=== PATIENT | female | born 1940 | race Caucasian/White ===

== ENCOUNTER 2016-09-04 16:59 | Emergency (ER) | payer MEDICARE ==
[~2016-09-04 16:59] MED LIST: /ADVA50050 IN; ALBUTEROL INH; COPAXONE SC; REQU2TAB3 OR; SING10TA31 OR; VALS80CA OR
[2016-09-04] MEDS ORDERED: ASPIRIN 81 MG CHEW TABLET As Ordered ONE (17:36)
[2016-09-04] MEDS ORDERED: HEPARIN SOD (PORCINE) 5000 UNITS/ML VIAL As Ordered ONE (17:54)
[2016-09-04] MEDS ORDERED: NITROGLYCERIN 2% OINT 1 GM *U/D* PKT As Ordered ONE (17:54)
[2016-09-04] MEDS ORDERED: CLOPIDOGREL 300 MG TAB (PLAVIX) As Ordered ONE (17:54)
[2016-09-04] MEDS ORDERED: HEPARIN 25,000 UNITS/250 ML D5W BAG (100 UNITS/ML) As Ordered ONE (17:55)
[2016-09-04 18:04] LABS: INR 0.89
[2016-09-04 18:14] LABS: BASO # 0.1 K/mm3 (0.0-0.2); BASO % 1.1 % (0.0-1.0); EOS # 0.2 K/mm3 (0.0-0.50); EOS % 2.2 % (0.0-3.0); LARGE UNSTAINED CELL # 0.2 K/mm3 (0.0-0.4); LARGE UNSTAINED CELL % 2.4 % (0.0-4.0); LYMPH # 1.7 K/mm3 (1.5-4.5); LYMPH % 15.5 % (24.0-44.0); MEAN CORPUSCULAR HEMOGLOBIN 28.3 pg (27.0-33.0); MEAN CORPUSCULAR HGB CONC 31.6 g/dl (32.0-36.5); MEAN CORPUSCULAR VOLUME 89.6 fl (80.0-96.0); MONO # 0.5 K/mm3 (0.0-0.8); MONO % 4.8 % (0.0-5.0); NEUTROPHILS # 7.1 K/mm3 (1.8-7.7); PLATELET COUNT, AUTOMATED 309 k/mm3 (150-450); RED CELL DISTRIBUTION WIDTH 14.1 % (11.5-14.5); WHITE BLOOD COUNT 9.6 K/mm3 (4.0-10.0)
[2016-09-04 18:21] LABS: ANION GAP 8 MEQ/L (8-16); BLOOD UREA NITROGEN 18 MG/DL (7-18); CARBON DIOXIDE LEVEL 27 MEQ/L (21-32); CHLORIDE LEVEL 110 MEQ/L (98-107); CREATININE FOR GFR 0.64 MG/DL (0.55-1.02); GLOMERULAR FILTRATION RATE > 60.0 (>39); GLUCOSE, FASTING 103 MG/DL (83-110); POTASSIUM SERUM 4.2 MEQ/L (3.5-5.1); SODIUM LEVEL 145 MEQ/L (136-145)
--- NOTE | 2016-09-04 18:30 | EDDOCDS ---
Nurse's Notes [facility] Name: Marielena Roy Age: 76 yrs Sex: Female : 1940 Arrival Date: 09/04/2016 Time: 16:59 Bed 14 Private MD: Zully Rodriguez Diagnosis: Non-ST elevation (NSTEMI) myocardial infarction Presentation: 09/04 17:04 Presenting complaint: Patient states: Chest pain for last 2 days, worse today. Aspirin dwg was not taken prior to arrival. Adult Sepsis Screening: The patient does not have new or worsening altered mentation. Patient's respiratory rate is less than 22. Systolic blood pressure is greater than 100. Patient has a qSOFA score of 0- Negative Sepsis Screen. Suicide/Homicide risk assessment- the patient denies having any suicidal and/or homicidal ideations and does not present with any other emotional, behavioral or mental health complaints. Status: Patient is not a stamp machine servicer or dependent. Transition of care: patient was not received from another setting of care. 17:04 Acuity: PAZ Level 2 dwg 17:04 Method Of Arrival: Wheelchair dwg 17:13 Red Flag criteria, patient assessed and taken directly to a bed. dwg Triage Assessment: 17:12 General: Appears in no apparent distress. Pain: Pain currently is 2 out of 10 on a pain dwg scale. 18:27 Cardiovascular: Chest pain is described as mild, radiates to left neck episodes are jjr intermittent began 2 days ago. Historical: - Allergies: no known allergies; - Home Meds: 1. Advair Diskus 250-50 mcg/dose Inhl dsdv 1 puff 2 times per day (Last dose: 09/04/2016 16:00) 2. atenolol 50 mg Oral tab 1 tab once daily (Last dose: 09/04/2016 08:00) 3. atorvastatin 20 mg oral tab 1 tab nightly (Last dose: 09/03/2016 20:00) 4. [place] 7.5-325 mg Oral tab as needed (Last dose: 09/03/2016 20:00) 5. ropinirole 2 mg oral tab 1 tab nightly (Last dose: 09/03/2016 20:00) 6. nortriptyline 10 mg Oral cap 2 caps nightly (Last dose: 09/03/2016 20:00) 7. montelukast 10 mg oral tab 1 tab once daily (Last dose: 09/04/2016 08:00) 8. Albuterol Inhl 2 puffs as needed 9. nitroglycerin 0.4 mg SL subl 1 tab as needed (Last dose: 09/03/2016 16:00) 10. aspirin 81 mg Oral tab 1 tab once daily (Last dose: 09/03/2016) - PMHx: Diverticulitis; Hypercholesterolemia; Hypertension; Irritable bowel syndrome; [place] (2010); restless leg syndrome; CAD; COPD; - PSHx: Repair of a perforated diverticulum; Tonsillectomy; Cardiac stents; - Social history: Smoking status: Patient states former smoker of tobacco. No barriers to communication noted, The patient speaks fluent Yakut. - : The pt / caregiver states he / she is not on anticoagulants. Home medication list is obtained from. - Exposure Risk Screening:: None identified. Screenin:27 Screening information is obtained from the patient. Fall risk: No risks identified. jjr Assistance ADL's: requires no assistance with activities of daily living. Abuse/DV Screen: The patient / caregiver reports he/she is: not in a situation that causes fear, pain or injury. Nutritional screening: No deficits noted. Advance Directives: There is no active DNR order. home support is adequate. Assessment: 17:29 General: Appears in no apparent distress, well nourished, well groomed, Behavior is jjr appropriate for age. Neurological: No deficits noted. Cardiovascular: Rhythm is sinus rhythm currently denying chest pain, reports substernal pain radiating to left anterior chest and left side of neck with episodes, pain varies from pressure to dull ache and are intermittent in nature, unchanged with activity. Respiratory: Airway is patent Respiratory effort is even, unlabored, Respiratory pattern is regular, Denies shortness of breath. Derm: Skin is pink, warm & dry. Vital Signs: 17:00 BP 206 / 114; Pulse 110; Resp 18 S; Temp 96.7; Pulse Ox 99% on R/A; Weight 40.37 kg dd6 (R); Height 4 ft. 7 in. (139.70 cm) (R); 17:25 BP 180 / 88 (auto/); jjr 17:26 Pulse 84 MON; Pulse Ox 99% ; jjr 17:45 BP 172 / 90 (auto/); jjr 17:45 Pulse 84 MON; Resp 18; Pulse Ox 98% on R/A; jjr 18:05 BP 208 / 110 (auto/); jjr 18:05 Pulse 114 MON; jjr 18:23 BP 184 / 98 (auto/); jjr 18:23 Pulse 90 MON; Resp 18; Temp 97(TE); Pulse Ox 97% on R/A; Pain 0/10; jjr 17:00 Body Mass Index 20.69 (40.37 kg, 139.70 cm) dd6 Vitals: 17:00 Log In Time: September 04, 2016 at 16:58. RN notified that patient meets Red Flag dd6 criteria. ED Course: 17:00 Patient visited by Tony Ramirez PCA. dd6 17:00 Zully Rodriguez is Private Physician. dd6 17:00 Patient moved to Waiting dd6 17:07 Triage Initiated dwg 17:14 Ting Miller, RN is Primary Nurse. dwg 17:14 Patient moved to 14 dwg 17:23 [facility]. le 17:30 Patient visited by Ting Miller RN. jjr 17:30 The patient / caregiver is instructed regarding the plan of care and ED course. Cardiac jjr monitor on. Pulse ox on. NIBP on. 17:31 Patient visited by Celi Brooks FNP. le 17:32 Patient visited by Celi Brooks FNP. le 17:49 Troponin Sent. jjr 17:49 D-Dimer Quant Sent. jjr 17:49 Cardiac Injury Profile Sent. jjr 17:49 CBC with Diff Sent. jjr 17:49 Basic Metabolic Profile Sent. jjr 17:50 Inserted saline lock: 20 gauge in right antecubital area and blood collected. Labs jjr drawn. (by ED staff). Sent per order to lab. EKG done. (by ED staff). Reviewed by Celi LIND. 18:27 No procedures done that require assistance. jjr Administered Medications: 17:42 Drug: Aspirin 324 mg [aspirin 81 mg chewable tablet (4 tabs)] Route: PO; jjr 18:07 Drug: heparin (Thrombolytic Protocol, 60 units/kg)) 2422.2 units [heparin (porcine) jjr 5,000 unit/mL injection solution (0.484 mL)] {Co-Signature: brett (Yeni Valentine RN).} Route: IVP; Site: right antecubital; 18:07 Drug: heparin (Thrombolytic Protocol, 12 units/kg/hr)) 85078 units [heparin (porcine) jjr 25,000 unit/250 mL (100 unit/mL) in dextrose 5 % IV] {Co-Signature: brett (Yeni Valentine RN).} Route: IV; Rate: 12 units/kg/hr; Site: right antecubital; 18:08 Drug: Plavix - Clopidogrel 600 mg [clopidogrel 75 mg tablet (8 tabs)] Route: PO; jjr 18:09 Drug: Nitro-Bid 1 inches [Nitro-Bid 2 % transdermal ointment (1 inches)] Route: jjr Transdermal; Site: anterior chest wall; Order Results: Lab Order: CBC with Diff; SPEC'M 09/04/16 17:46 Test: WHITE BLOOD COUNT; Value: 9.6; Range: 4.0-10.0; Units: K/mm3; Status: F Test: RED BLOOD COUNT; Value: 4.61; Range: 4.00-5.40; Units: M/mm3; Status: F Test: HEMOGLOBIN; Value: 13.1; Range: 12.0-16.0; Units: g/dl; Status: F Test: HEMATOCRIT; Value: 41.3; Range: 36.0-47.0; Units: %; Status: F Test: MEAN CORPUSCULAR VOLUME; Value: 89.6; Range: 80.0-96.0; Units: fl; Status: F Test: MEAN CORPUSCULAR HEMOGLOBIN; Value: 28.3; Range: 27.0-33.0; Units: pg; Status: F Test: MEAN CORPUSCULAR HGB CONC; Value: 31.6; Range: 32.0-36.5; Abnormal: Below low normal; Units: g/dl; Status: F Test: RED CELL DISTRIBUTION WIDTH; Value: 14.1; Range: 11.5-14.5; Units: %; Status: F Test: PLATELET COUNT, AUTOMATED; Value: 309; Range: 150-450; Units: k/mm3; Status: F Test: NEUTROPHILS %; Value: 74.0; Range: 36.0-66.0; Abnormal: Above high normal; Units: %; Status: F Test: LYMPH %; Value: 15.5; Range: 24.0-44.0; Abnormal: Below low normal; Units: %; Status: F Test: MONO %; Value: 4.8; Range: 0.0-5.0; Units: %; Status: F Test: EOS %; Value: 2.2; Range: 0.0-3.0; Units: %; Status: F Test: BASO %; Value: 1.1; Range: 0.0-1.0; Abnormal: Above high normal; Units: %; Status: F Test: LARGE UNSTAINED CELL %; Value: 2.4; Range: 0.0-4.0; Units: %; Status: F Test: NEUTROPHILS #; Value: 7.1; Range: 1.8-7.7; Units: K/mm3; Status: F Test: LYMPH #; Value: 1.7; Range: 1.5-4.5; Units: K/mm3; Status: F Test: MONO #; Value: 0.5; Range: 0.0-0.8; Units: K/mm3; Status: F Test: EOS #; Value: 0.2; Range: 0.0-0.50; Units: K/mm3; Status: F Test: BASO #; Value: 0.1; Range: 0.0-0.2; Units: K/mm3; Status: F Test: LARGE UNSTAINED CELL #; Value: 0.2; Range: 0.0-0.4; Units: K/mm3; Status: F Lab Order: D-Dimer Quant; SPEC'M 09/04/16 17:46 Test: D-DIMER QUANT; Value: < 270.0; Range: <500; Units: ng/ml; Status: F Lab Order: PT & APTT; SPEC'M 09/04/16 17:46 Test: PROTHROMBIN TIME; Value: 12.2; Range: 12.3-14.5; Abnormal: Below low normal; Units: SECONDS; Status: F Test: INR; Value: 0.89; Status: F Test: PARTIAL THROMBOPLASTIN TIME; Value: 25.0; Range: 26.6-37.1; Abnormal: Below low normal; Units: SECONDS; Status: F Test Note: ; THERAPUTIC HUMAN INR VALUES INDICATIONS NORMAL RANGES PROPHYLAXIS/TREATMENT OF: VENOUS THROMBOSIS 2.0-3.0 PULMONARY EMBOLISM 2.0-3.0 PREVENTION OF SYSTEMIC EMBOLISM FROM: TISSUE HEART VALVES 2.0-3.0 ACUTE MYOCARDIAL INFARCTION 2.0-3.0 VALVULAR HEART DISEASE 2.0-3.0 ATRIAL FIBRILLATION 2.0-3.0 MECHANICAL VALVES(HIGH RISK) 2.5-3.5 RECURRENT MYOCARDIAL INFARCTION 2.5-3.5 Outcome: 17:54 ER care complete, transfer ordered by Provider. le 18:14 Admission hand-off: Report called to Marion Polo RN room D5113 phone #[phone]. jjr 18:27 Discharge Assessment: patient administered narcotics - no. The following High Risk r Discharge criteria are identified: None. Transferred to [facility]. by EMS ground [facility] ambulance Transfer form completed. x-rays sent w/ patient. Condition: stable. No special radiology studies were completed. Property :Personal belongings accompany Pt. 18:28 Patient left the ED. jr Signatures: Ivan Monsalve RN RYAN [facility] Celi Brooks, DEPARTMENT SECRETARY DEPARTMENT SECRETARY Ting Ponce RN RN jr Tony Ramirez, SAGGER SOAK SAGGER SOAK dd6 Yeni Valentine RN srm Corrections: (The following items were deleted from the chart) 17:13 17:12 Home Meds: nitroglycerin 0.4 mg SL subl 1 tab as needed; bettina pyle 17:56 17:49 PROTHROMBIN TIME PROFILE\E\INR+LAB sent. jjr EDMS 17:56 17:49 PARTIAL THROMBOPLASTIN TIME+LAB sent. r EDMS MTDD
--- NOTE | 2016-09-04 18:30 | EDDOCDS ---
Physician Documentation [facility] Name: Marielena Roy Age: 76 yrs Sex: Female : 1940 Arrival Date: 09/04/2016 Time: 16:59 Bed 14 Private MD: Zully Rodriguez Disposition: 09/04 17:54 I concur with the Midlevel Provider's decision to transfer this patient to a Higher [facility] Level of Care Facility. Maurice Leonard MD. Disposition: 09/04/16 17:54 Transfer ordered to [facility]. Diagnosis is Non-ST elevation (NSTEMI) myocardial infarction. - Reason for transfer: Higher level of care. - Accepting physician is Ruth. - Condition is Stable. - Problem is new. - Symptoms are unchanged. Historical: - Allergies: no known allergies; - Home Meds: 1. Advair Diskus 250-50 mcg/dose Inhl dsdv 1 puff 2 times per day (Last dose: 09/04/2016 16:00) 2. atenolol 50 mg Oral tab 1 tab once daily (Last dose: 09/04/2016 08:00) 3. atorvastatin 20 mg oral tab 1 tab nightly (Last dose: 09/03/2016 20:00) 4. [place] 7.5-325 mg Oral tab as needed (Last dose: 09/03/2016 20:00) 5. ropinirole 2 mg oral tab 1 tab nightly (Last dose: 09/03/2016 20:00) 6. nortriptyline 10 mg Oral cap 2 caps nightly (Last dose: 09/03/2016 20:00) 7. montelukast 10 mg oral tab 1 tab once daily (Last dose: 09/04/2016 08:00) 8. Albuterol Inhl 2 puffs as needed 9. nitroglycerin 0.4 mg SL subl 1 tab as needed (Last dose: 09/03/2016 16:00) 10. aspirin 81 mg Oral tab 1 tab once daily (Last dose: 09/03/2016) - PMHx: Diverticulitis; Hypercholesterolemia; Hypertension; Irritable bowel syndrome; [place] (2010); restless leg syndrome; CAD; COPD; - PSHx: Repair of a perforated diverticulum; Tonsillectomy; Cardiac stents; - Social history: Smoking status: Patient states former smoker of tobacco. No barriers to communication noted, The patient speaks fluent Arabic. - : The pt / caregiver states he / she is not on anticoagulants. Home medication list is obtained from. - Exposure Risk Screening:: None identified. Vital Signs: 17:00 BP 206 / 114; Pulse 110; Resp 18 S; Temp 96.7; Pulse Ox 99% on R/A; Weight 40.37 kg / dd6 89 lbs (R); Height 4 ft. 7 in. (139.70 cm) (R); 17:25 BP 180 / 88 (auto/); jjr 17:26 Pulse 84 MON; Pulse Ox 99% ; jjr 17:45 BP 172 / 90 (auto/); jjr 17:45 Pulse 84 MON; Resp 18; Pulse Ox 98% on R/A; jjr 18:05 BP 208 / 110 (auto/); jjr 18:05 Pulse 114 MON; jjr 18:23 BP 184 / 98 (auto/); jjr 18:23 Pulse 90 MON; Resp 18; Temp 97(TE); Pulse Ox 97% on R/A; Pain 0/10; jjr 17:00 Body Mass Index 20.69 (40.37 kg, 139.70 cm) dd6 MDM: 17:15 ECG WITH READING ER PHYS+CARDIAG ordered. EDMS 17:24 Aspirin Chewable Tablet 324 mg PO once ordered. le 17:24 Collateral Specialist/Pulse Ox/q 30 min VS ordered. le 17:24 IV Saline Lock ordered. le 17:24 Rhythm Strip to chart ordered. le 17:24 Undress patient appropriately for examination ordered. le 17:24 Misc. Nursing Order ordered. le 17:25 Basic Metabolic Profile Ordered. EDMS 17:25 CBC with Diff Ordered. EDMS 17:25 Cardiac Injury Profile Ordered. EDMS 17:25 D-Dimer Quant Ordered. EDMS 17:25 Troponin Ordered. EDMS 17:26 Chest, 2 View (pa\E\lat) Ordered. EDMS 17:43 Nitro-Bid Ointment 2 % 1 inches Transdermal once ordered. le 17:46 Plavix - Clopidogrel 600 mg PO once ordered. le 17:46 heparin (Thrombolytic Protocol, 60 units/kg)) 60 units/kg IVP once; 2400 units ordered. le 17:46 heparin (Thrombolytic Protocol, 12 units/kg/hr)) 85202 units IV at 12 units/kg/hr once; le 480 units/hr ordered. 17:56 PT & APTT Ordered. EDMS 18:20 CBC with Diff Reviewed. le 18:20 PT & APTT Reviewed. le 18:20 D-Dimer Quant Reviewed. le Administered Medications: 17:42 Drug: Aspirin 324 mg [aspirin 81 mg chewable tablet (4 tabs)] Route: PO; jjr 18:07 Drug: heparin (Thrombolytic Protocol, 60 units/kg)) 2422.2 units [heparin (porcine) jjr 5,000 unit/mL injection solution (0.484 mL)] {Co-Signature: brett (Yeni Valentine RN).} Route: IVP; Site: right antecubital; 18:07 Drug: heparin (Thrombolytic Protocol, 12 units/kg/hr)) 73001 units [heparin (porcine) jjr 25,000 unit/250 mL (100 unit/mL) in dextrose 5 % IV] {Co-Signature: brett (Yeni Valentine RN).} Route: IV; Rate: 12 units/kg/hr; Site: right antecubital; 18:08 Drug: Plavix - Clopidogrel 600 mg [clopidogrel 75 mg tablet (8 tabs)] Route: PO; jjr 18:09 Drug: Nitro-Bid 1 inches [Nitro-Bid 2 % transdermal ointment (1 inches)] Route: jjr Transdermal; Site: anterior chest wall; Signatures: Dispatcher [employer] Ivan Brooks RN RN dwg Westcott, Lisa, ORACLE DRM CONSULTANT ORACLE DRM CONSULTANT Maurice Minor MD MD br1 Ting Miller RN RN jjr Yeni west The chart was reviewed and I authenticate all verbal orders and agree with the evaluation and treatment provided.Corrections: (The following items were deleted from the chart) 17:13 17:12 Home Meds: nitroglycerin 0.4 mg SL subl 1 tab as needed; bettina dunbar 17:56 17:47 PROTHROMBIN TIME PROFILE\E\INR+LAB ordered. EDMS EDMS 17:56 17:47 PARTIAL THROMBOPLASTIN TIME+LAB ordered. EDMS EDMS MTDD
--- NOTE | 2016-09-04 19:51 | REP ---
AP and lateral chest radiograph 09/04/2016 Indication: Chest pain Comparison: PA and lateral chest radiograph 03/27/2015 performed at [facility] Findings: The cardiomediastinal silhouette is borderline in size with left ventricular prominence. There is a hiatal hernia which is seen in left lower chest and in a left retrocardiac location. Severe rotatory dextroscoliosis is noted within the thoracic spine and there is a compensatory significant levoscoliosis within the upper lumbar spine. Moderate atherosclerotic changes are noted in the abdominal aorta. There is a left anterior descending coronary artery stent Impression: The cardiomediastinal silhouette is borderline in size with left ventricular prominence and unchanged. Coronary artery stent There is also a left-sided hiatal hernia Chronic fibrotic scarring; no acute cardiopulmonary process Severe S-shaped scoliotic deformity involving the thoracic i and t included portions of the lumbar spine Signed by Lavinia Garrison MD 09/04/2016 07:42 P
--- NOTE | 2016-09-05 08:11 | ECGEPIP ---
Stationary ECG Study [facility] - ED Test Date: 2016-09-04 Pat Name: MATTIE JENKINS Department: Room: - Gender: F Canoe Inspector: : 1940 Requested By: ROSIE Collado Order Number: [id number] Reading MD: Katheryn Johnson Measurements Intervals [place] Rate: 86 P: 62 [place]: 120 QRS: 59 QRSD: 88 T: 66 QT: 425 QTc: 510 Interpretive Statements SINUS RHYTHM MARKED ST ABNORMALITY, ANTERIOR ISCHEMIA, NEW 02/25/12, CLINICAL CORRELATION Electronically Signed On 09-05-2016 8:11:11 EST by Katheryn Johnson
--- NOTE | 2016-09-06 19:29 | EDDOCDS ---
Physician Documentation [facility] Name: Marielena Roy Age: 76 yrs Sex: Female : 1940 Arrival Date: 09/04/2016 Time: 16:59 Bed 14 Private MD: Zully Rodriguez Disposition: 09/04 17:54 I concur with the Midlevel Provider's decision to transfer this patient to a [facility]. Maurice Leonard MD. Disposition: 09/04/16 17:54 Transfer ordered to [facility]. Diagnosis is Non-ST elevation (NSTEMI) myocardial infarction. - Reason for transfer: Higher level of care. - Accepting physician is Ruth. - Condition is Stable. - Problem is new. - Symptoms are unchanged. Historical: - Allergies: no known allergies; - Home Meds: 1. Advair Diskus 250-50 mcg/dose Inhl dsdv 1 puff 2 times per day (Last dose: 09/04/2016 16:00) 2. atenolol 50 mg Oral tab 1 tab once daily (Last dose: 09/04/2016 08:00) 3. atorvastatin 20 mg oral tab 1 tab nightly (Last dose: 09/03/2016 20:00) 4. [place] 7.5-325 mg Oral tab as needed (Last dose: 09/03/2016 20:00) 5. ropinirole 2 mg oral tab 1 tab nightly (Last dose: 09/03/2016 20:00) 6. nortriptyline 10 mg Oral cap 2 caps nightly (Last dose: 09/03/2016 20:00) 7. montelukast 10 mg oral tab 1 tab once daily (Last dose: 09/04/2016 08:00) 8. Albuterol Inhl 2 puffs as needed 9. nitroglycerin 0.4 mg SL subl 1 tab as needed (Last dose: 09/03/2016 16:00) 10. aspirin 81 mg Oral tab 1 tab once daily (Last dose: 09/03/2016) - PMHx: Diverticulitis; Hypercholesterolemia; Hypertension; Irritable bowel syndrome; [place] (2010); restless leg syndrome; CAD; COPD; - PSHx: Repair of a perforated diverticulum; Tonsillectomy; Cardiac stents; - Social history: Smoking status: Patient states former smoker of tobacco. No barriers to communication noted, The patient speaks fluent Romansh. - : The pt / caregiver states he / she is not on anticoagulants. Home medication list is obtained from. - Exposure Risk Screening:: None identified. Vital Signs: 17:00 BP 206 / 114; Pulse 110; Resp 18 S; Temp 96.7; Pulse Ox 99% on R/A; Weight 40.37 kg / dd6 89 lbs (R); Height 4 ft. 7 in. (139.70 cm) (R); 17:25 BP 180 / 88 (auto/); jjr 17:26 Pulse 84 MON; Pulse Ox 99% ; jjr 17:45 BP 172 / 90 (auto/); jjr 17:45 Pulse 84 MON; Resp 18; Pulse Ox 98% on R/A; jjr 18:05 BP 208 / 110 (auto/); jjr 18:05 Pulse 114 MON; jjr 18:23 BP 184 / 98 (auto/); jjr 18:23 Pulse 90 MON; Resp 18; Temp 97(TE); Pulse Ox 97% on R/A; Pain 0/10; jjr 17:00 Body Mass Index 20.69 (40.37 kg, 139.70 cm) dd6 MDM: 17:15 ECG WITH READING ER PHYS+CARDIAG ordered. EDMS 17:24 Aspirin Chewable Tablet 324 mg PO once ordered. le 17:24 Erp Business Analyst/Pulse Ox/q 30 min VS ordered. le 17:24 IV Saline Lock ordered. le 17:24 Rhythm Strip to chart ordered. le 17:24 Undress patient appropriately for examination ordered. le 17:24 Misc. Nursing Order ordered. le 17:25 Basic Metabolic Profile Ordered. EDMS 17:25 CBC with Diff Ordered. EDMS 17:25 Cardiac Injury Profile Ordered. EDMS 17:25 D-Dimer Quant Ordered. EDMS 17:25 Troponin Ordered. EDMS 17:26 Chest, 2 View (pa\E\lat) Ordered. EDMS 17:43 Nitro-Bid Ointment 2 % 1 inches Transdermal once ordered. le 17:46 Plavix - Clopidogrel 600 mg PO once ordered. le 17:46 heparin (Thrombolytic Protocol, 60 units/kg)) 60 units/kg IVP once; 2400 units ordered. le 17:46 heparin (Thrombolytic Protocol, 12 units/kg/hr)) 23903 units IV at 12 units/kg/hr once; le 480 units/hr ordered. 17:56 PT & APTT Ordered. EDMS 18:20 CBC with Diff Reviewed. le 18:20 PT & APTT Reviewed. le 18:20 D-Dimer Quant Reviewed. le 22:43 [facility] Payment Agreement was scanned into Vetr and attached to record. jp5 22:43 Financial registration complete. jp5 09/05 12:40 T-Sheet-- Draft Copy was scanned into Vetr and attached to record. gb 12:41 ECG/EKG was scanned into Vetr and attached to record. gb Administered Medications: 09/04 17:42 Drug: Aspirin 324 mg [aspirin 81 mg chewable tablet (4 tabs)] Route: PO; jjr 18:07 Drug: heparin (Thrombolytic Protocol, 60 units/kg)) 2422.2 units [heparin (porcine) jjr 5,000 unit/mL injection solution (0.484 mL)] {Co-Signature: srm (Yeni Valentine RN).} Route: IVP; Site: right antecubital; 18:07 Drug: heparin (Thrombolytic Protocol, 12 units/kg/hr)) 85706 units [heparin (porcine) jjr 25,000 unit/250 mL (100 unit/mL) in dextrose 5 % IV] {Co-Signature: srm (Yeni Valentine RN).} Route: IV; Rate: 12 units/kg/hr; Site: right antecubital; 18:08 Drug: Plavix - Clopidogrel 600 mg [clopidogrel 75 mg tablet (8 tabs)] Route: PO; jjr 18:09 Drug: Nitro-Bid 1 inches [Nitro-Bid 2 % transdermal ointment (1 inches)] Route: jjr Transdermal; Site: anterior chest wall; Signatures: Dispatcher [employer] EDMS Ivan Monsalve RN RN dwHolli Pearce, Reg Reg gb Celi Brooks, SPICE BLENDER SPICE BLENDER Maurice Minor MD MD br1 Ting Miller RN RN Spring Davies jp5 Yeni west The chart was reviewed and I authenticate all verbal orders and agree with the evaluation and treatment provided.Corrections: (The following items were deleted from the chart) 17:13 17:12 Home Meds: nitroglycerin 0.4 mg SL subl 1 tab as needed; dwg dwg 17:56 17:47 PROTHROMBIN TIME PROFILE\E\INR+LAB ordered. EDMS EDMS 17:56 17:47 PARTIAL THROMBOPLASTIN TIME+LAB ordered. EDMS EDMS Attachments: 22:43 [facility] Payment Agreement jp5 09/05 12:40 T-Sheet-- Draft Copy gb 12:41 ECG/EKG gb Chart Complete MTDD
--- NOTE | 2016-09-06 19:29 | EDDOCDS ---
Nurse's Notes [facility] Name: Marielena Roy Age: 76 yrs Sex: Female : 1940 Arrival Date: 09/04/2016 Time: 16:59 Bed 14 Private MD: Zully Rodriguez Diagnosis: Non-ST elevation (NSTEMI) myocardial infarction Presentation: 09/04 17:04 Presenting complaint: Patient states: Chest pain for last 2 days, worse today. Aspirin dwg was not taken prior to arrival. Adult Sepsis Screening: The patient does not have new or worsening altered mentation. Patient's respiratory rate is less than 22. Systolic blood pressure is greater than 100. Patient has a qSOFA score of 0- Negative Sepsis Screen. Suicide/Homicide risk assessment- the patient denies having any suicidal and/or homicidal ideations and does not present with any other emotional, behavioral or mental health complaints. Status: Patient is not a guest services associate or dependent. Transition of care: patient was not received from another setting of care. 17:04 Acuity: PAZ Level 2 dwg 17:04 Method Of Arrival: Wheelchair dwg 17:13 Red Flag criteria, patient assessed and taken directly to a bed. dwg Triage Assessment: 17:12 General: Appears in no apparent distress. Pain: Pain currently is 2 out of 10 on a pain dwg scale. 18:27 Cardiovascular: Chest pain is described as mild, radiates to left neck episodes are jjr intermittent began 2 days ago. Historical: - Allergies: no known allergies; - Home Meds: 1. Advair Diskus 250-50 mcg/dose Inhl dsdv 1 puff 2 times per day (Last dose: 09/04/2016 16:00) 2. atenolol 50 mg Oral tab 1 tab once daily (Last dose: 09/04/2016 08:00) 3. atorvastatin 20 mg oral tab 1 tab nightly (Last dose: 09/03/2016 20:00) 4. [place] 7.5-325 mg Oral tab as needed (Last dose: 09/03/2016 20:00) 5. ropinirole 2 mg oral tab 1 tab nightly (Last dose: 09/03/2016 20:00) 6. nortriptyline 10 mg Oral cap 2 caps nightly (Last dose: 09/03/2016 20:00) 7. montelukast 10 mg oral tab 1 tab once daily (Last dose: 09/04/2016 08:00) 8. Albuterol Inhl 2 puffs as needed 9. nitroglycerin 0.4 mg SL subl 1 tab as needed (Last dose: 09/03/2016 16:00) 10. aspirin 81 mg Oral tab 1 tab once daily (Last dose: 09/03/2016) - PMHx: Diverticulitis; Hypercholesterolemia; Hypertension; Irritable bowel syndrome; SC (2010); restless leg syndrome; CAD; COPD; - PSHx: Repair of a perforated diverticulum; Tonsillectomy; Cardiac stents; - Social history: Smoking status: Patient states former smoker of tobacco. No barriers to communication noted, The patient speaks fluent Slovenian. - : The pt / caregiver states he / she is not on anticoagulants. Home medication list is obtained from. - Exposure Risk Screening:: None identified. Screenin:27 Screening information is obtained from the patient. Fall risk: No risks identified. jjr Assistance ADL's: requires no assistance with activities of daily living. Abuse/DV Screen: The patient / caregiver reports he/she is: not in a situation that causes fear, pain or injury. Nutritional screening: No deficits noted. Advance Directives: There is no active DNR order. home support is adequate. Assessment: 17:29 General: Appears in no apparent distress, well nourished, well groomed, Behavior is jjr appropriate for age. Neurological: No deficits noted. Cardiovascular: Rhythm is sinus rhythm currently denying chest pain, reports substernal pain radiating to left anterior chest and left side of neck with episodes, pain varies from pressure to dull ache and are intermittent in nature, unchanged with activity. Respiratory: Airway is patent Respiratory effort is even, unlabored, Respiratory pattern is regular, Denies shortness of breath. Derm: Skin is pink, warm & dry. Vital Signs: 17:00 BP 206 / 114; Pulse 110; Resp 18 S; Temp 96.7; Pulse Ox 99% on R/A; Weight 40.37 kg dd6 (R); Height 4 ft. 7 in. (139.70 cm) (R); 17:25 BP 180 / 88 (auto/); jjr 17:26 Pulse 84 MON; Pulse Ox 99% ; jjr 17:45 BP 172 / 90 (auto/); jjr 17:45 Pulse 84 MON; Resp 18; Pulse Ox 98% on R/A; jjr 18:05 BP 208 / 110 (auto/); jjr 18:05 Pulse 114 MON; jjr 18:23 BP 184 / 98 (auto/); jjr 18:23 Pulse 90 MON; Resp 18; Temp 97(TE); Pulse Ox 97% on R/A; Pain 0/10; jjr 17:00 Body Mass Index 20.69 (40.37 kg, 139.70 cm) dd6 Vitals: 17:00 Log In Time: September 04, 2016 at 16:58. RN notified that patient meets Red Flag dd6 criteria. ED Course: 17:00 Patient visited by Tony Ramirez PCA. dd6 17:00 Zully Rodriguez is Private Physician. dd6 17:00 Patient moved to Waiting dd6 17:07 Triage Initiated dwg 17:14 Ting Miller, RN is Primary Nurse. dwg 17:14 Patient moved to 14 dwg 17:23 [facility] le 17:30 Patient visited by Ting Miller RN. jjr 17:30 The patient / caregiver is instructed regarding the plan of care and ED course. Cardiac jjr monitor on. Pulse ox on. NIBP on. 17:31 Patient visited by Celi Brooks FNP. le 17:32 Patient visited by Celi Brooks FNP. le 17:49 Troponin Sent. jjr 17:49 D-Dimer Quant Sent. jjr 17:49 Cardiac Injury Profile Sent. jjr 17:49 CBC with Diff Sent. jjr 17:49 Basic Metabolic Profile Sent. jjr 17:50 Inserted saline lock: 20 gauge in right antecubital area and blood collected. Labs jjr drawn. (by ED staff). Sent per order to lab. EKG done. (by ED staff). Reviewed by Celi LIND. 18:27 No procedures done that require assistance. jjr 20:20 Chest, 2 View (pa\E\lat) Returned. EDMS 22:43 [facility] Payment Agreement was scanned into [employer] and attached to record. jp5 09/05 08:41 EKG-ADULT Returned. EDMS 12:40 T-Sheet-- Draft Copy was scanned into [employer] and attached to record. gb 12:41 ECG/EKG was scanned into [employer] and attached to record. gb Administered Medications: 09/04 17:42 Drug: Aspirin 324 mg [aspirin 81 mg chewable tablet (4 tabs)] Route: PO; jjr 18:07 Drug: heparin (Thrombolytic Protocol, 60 units/kg)) 2422.2 units [heparin (porcine) jjr 5,000 unit/mL injection solution (0.484 mL)] {Co-Signature: srm (Yeni Valentine RN).} Route: IVP; Site: right antecubital; 18:07 Drug: heparin (Thrombolytic Protocol, 12 units/kg/hr)) 62177 units [heparin (porcine) jjr 25,000 unit/250 mL (100 unit/mL) in dextrose 5 % IV] {Co-Signature: srm (Yeni Valentine RN).} Route: IV; Rate: 12 units/kg/hr; Site: right antecubital; 18:08 Drug: Plavix - Clopidogrel 600 mg [clopidogrel 75 mg tablet (8 tabs)] Route: PO; jjr 18:09 Drug: Nitro-Bid 1 inches [Nitro-Bid 2 % transdermal ointment (1 inches)] Route: jjr Transdermal; Site: anterior chest wall; Order Results: Lab Order: Basic Metabolic Profile; SPEC'M 09/04/16 17:46 Test: GLUCOSE, FASTING; Value: 103; Range: 83-110; Units: MG/DL; Status: F Test: BLOOD UREA NITROGEN; Value: 18; Range: 7-18; Units: MG/DL; Status: F Test: CREATININE FOR GFR; Value: 0.64; Range: 0.55-1.02; Units: MG/DL; Status: F Test: GLOMERULAR FILTRATION RATE; Value: > 60.0; Range: >39; Status: F Test: SODIUM LEVEL; Value: 145; Range: 136-145; Units: MEQ/L; Status: F Test: POTASSIUM SERUM; Value: 4.2; Range: 3.5-5.1; Units: MEQ/L; Status: F Test: CHLORIDE LEVEL; Value: 110; Range: 98-107; Abnormal: Above high normal; Units: MEQ/L; Status: F Test: CARBON DIOXIDE LEVEL; Value: 27; Range: 21-32; Units: MEQ/L; Status: F Test: ANION GAP; Value: 8; Range: 8-16; Units: MEQ/L; Status: F Test: CALCIUM LEVEL; Value: 9.0; Range: 8.8-10.2; Units: MG/DL; Status: F Test Note: ; Units are mL/min/1.73 m2 Chronic Kidney Disease Staging per NKF: Stage I & II GFR >=60 Normal to Mildly Decreased Stage III GFR 30-59 Moderately Decreased Stage IV GFR 15-29 Severely Decreased Stage V GFR <15 Very Little GFR Left ESRD GFR <15 on AUTOMATIC VULCANIZING OPERATOR Lab Order: CBC with Diff; SPEC'M 09/04/16 17:46 Test: WHITE BLOOD COUNT; Value: 9.6; Range: 4.0-10.0; Units: K/mm3; Status: F Test: RED BLOOD COUNT; Value: 4.61; Range: 4.00-5.40; Units: M/mm3; Status: F Test: HEMOGLOBIN; Value: 13.1; Range: 12.0-16.0; Units: g/dl; Status: F Test: HEMATOCRIT; Value: 41.3; Range: 36.0-47.0; Units: %; Status: F Test: MEAN CORPUSCULAR VOLUME; Value: 89.6; Range: 80.0-96.0; Units: fl; Status: F Test: MEAN CORPUSCULAR HEMOGLOBIN; Value: 28.3; Range: 27.0-33.0; Units: pg; Status: F Test: MEAN CORPUSCULAR HGB CONC; Value: 31.6; Range: 32.0-36.5; Abnormal: Below low normal; Units: g/dl; Status: F Test: RED CELL DISTRIBUTION WIDTH; Value: 14.1; Range: 11.5-14.5; Units: %; Status: F Test: PLATELET COUNT, AUTOMATED; Value: 309; Range: 150-450; Units: k/mm3; Status: F Test: NEUTROPHILS %; Value: 74.0; Range: 36.0-66.0; Abnormal: Above high normal; Units: %; Status: F Test: LYMPH %; Value: 15.5; Range: 24.0-44.0; Abnormal: Below low normal; Units: %; Status: F Test: MONO %; Value: 4.8; Range: 0.0-5.0; Units: %; Status: F Test: EOS %; Value: 2.2; Range: 0.0-3.0; Units: %; Status: F Test: BASO %; Value: 1.1; Range: 0.0-1.0; Abnormal: Above high normal; Units: %; Status: F Test: LARGE UNSTAINED CELL %; Value: 2.4; Range: 0.0-4.0; Units: %; Status: F Test: NEUTROPHILS #; Value: 7.1; Range: 1.8-7.7; Units: K/mm3; Status: F Test: LYMPH #; Value: 1.7; Range: 1.5-4.5; Units: K/mm3; Status: F Test: MONO #; Value: 0.5; Range: 0.0-0.8; Units: K/mm3; Status: F Test: EOS #; Value: 0.2; Range: 0.0-0.50; Units: K/mm3; Status: F Test: BASO #; Value: 0.1; Range: 0.0-0.2; Units: K/mm3; Status: F Test: LARGE UNSTAINED CELL #; Value: 0.2; Range: 0.0-0.4; Units: K/mm3; Status: F Lab Order: Cardiac Injury Profile; SPEC'M 09/04/16 17:46 Test: CPK CREATINE PHOSPHOKINASE; Value: 135; Range: 26-192; Units: U/L; Status: F Test: CK-MB VALUE MASS; Value: 12.4; Range: 0.0-3.6; Abnormal: Above high normal; Units: NG/ML; Status: F Test: MB/CK RELATIVE INDEX; Value: 9.18; Range: < OR =4; Abnormal: Above high normal; Status: F Test Note: ; DIAGNOSIS CRITERIA MMB ng/ml Relative Index (RI) NON-AMI < or = 5 N/A CHUNG ZONE > 5 < or = 4 AMI > 5 > 4 Lab Order: D-Dimer Quant; SPEC'M 09/04/16 17:46 Test: D-DIMER QUANT; Value: < 270.0; Range: <500; Units: ng/ml; Status: F Lab Order: Troponin; SPEC'M 09/04/16 17:46 Test: TROPONIN I; Value: 1.92; Range: < 0.10; Abnormal: Above upper panic limits; Units: NG/ML; Status: F Test Note: ; Troponin I Reference Interval for [employer] LOCI: 99th Percentile= 0.00-0.045 ng/ml Risk Stratification: <= 0.10 ng/ml Decreased Risk for Adverse Clinical Events. 0.10-1.50 ng/ml Increased Risk for Adverse Clinical Events. Evaluation of additional criterion and/or repeat testing in 2-6 hours is suggested to rule out myocardial damage. >= 1.50 ng/ml Indicative of Myocardial Injury. Lab Order: PT & APTT; SPEC'M 09/04/16 17:46 Test: PROTHROMBIN TIME; Value: 12.2; Range: 12.3-14.5; Abnormal: Below low normal; Units: SECONDS; Status: F Test: INR; Value: 0.89; Status: F Test: PARTIAL THROMBOPLASTIN TIME; Value: 25.0; Range: 26.6-37.1; Abnormal: Below low normal; Units: SECONDS; Status: F Test Note: ; THERAPUTIC HUMAN INR VALUES INDICATIONS NORMAL RANGES PROPHYLAXIS/TREATMENT OF: VENOUS THROMBOSIS 2.0-3.0 PULMONARY EMBOLISM 2.0-3.0 PREVENTION OF SYSTEMIC EMBOLISM FROM: TISSUE HEART VALVES 2.0-3.0 ACUTE MYOCARDIAL INFARCTION 2.0-3.0 VALVULAR HEART DISEASE 2.0-3.0 ATRIAL FIBRILLATION 2.0-3.0 MECHANICAL VALVES(HIGH RISK) 2.5-3.5 RECURRENT MYOCARDIAL INFARCTION 2.5-3.5 Radiology Order: EKG-ADULT Test: EKG-ADULT REASON FOR EXAMINATION: Chest Pain; Stationary ECG Study; [facility] - ED; ; Test Date: 2016-09-04; Pat Name: MARIELENA ROY Department:; Room: -; Gender: F Evs Tech: ; : 1940 Requested By: ROSIE Collado; Order Number: [id number] Reading MD: Katheryn Johnson; Measurements; Intervals [place]; Rate: 86 P: 62; SC: 120 QRS: 59; QRSD: 88 T: 66; QT: 425; QTc: 510; Interpretive Statements; SINUS RHYTHM; MARKED ST ABNORMALITY, ANTERIOR ISCHEMIA, NEW 02/25/12, CLINICAL CORRELATION; ; Electronically Signed On 09-05-2016 8:11:11 EST by Katheryn Johnson; Radiology Order: Chest, 2 View (pa\E\lat) Test: Chest, 2 View (pa\E\lat) REASON FOR EXAMINATION: Chest Pain; AP and lateral chest radiograph 09/04/2016; ; Indication: Chest pain; ; Comparison: PA and lateral chest radiograph 03/27/2015 performed at [facility]; ; Findings: The cardiomediastinal silhouette is borderline in size with left; ventricular prominence. There is a hiatal hernia which is seen in left lower; chest and in a left retrocardiac location.; ; Severe rotatory dextroscoliosis is noted within the thoracic spine and there is a; compensatory significant levoscoliosis within the upper lumbar spine. Moderate; atherosclerotic changes are noted in the abdominal aorta. There is a left; anterior descending coronary artery stent; ; Impression:; ; The cardiomediastinal silhouette is borderline in size with left ventricular; prominence and unchanged. Coronary artery stent; ; There is also a left-sided hiatal hernia; ; Chronic fibrotic scarring; no acute cardiopulmonary process; ; Severe S-shaped scoliotic deformity involving the thoracic i and t included; portions of the lumbar spine; ; ; Signed by; Lavinia Garrison MD 09/04/2016 07:42 P; Outcome: 17:54 ER care complete, transfer ordered by Provider. le 18:14 Admission hand-off: Report called to Marion Polo RN room D5315 phone #[phone]. jjr 18:27 Discharge Assessment: patient administered narcotics - no. The following High Risk r Discharge criteria are identified: None. Transferred to [facility]. by EMS ground [facility] ambulance Transfer form completed. x-rays sent w/ patient. Condition: stable. No special radiology studies were completed. Property :Personal belongings accompany Pt. 18:28 Patient left the ED. [facility] Signatures: Dispatcher [employer] EDMS Ivan Monsalve, RN RN [facility] Holli Lomeli, Reg Reg gb ToddCeli, LINE ORDERING CLINICIAN LINE ORDERING CLINICIAN Ting Ponce, RN RN jr Tony Ramirez, COAT ROOM ATTENDANT COAT ROOM ATTENDANT dd6 Spring Conley jp5 Yeni Valentine RN srm Corrections: (The following items were deleted from the chart) 17:13 17:12 Home Meds: nitroglycerin 0.4 mg SL subl 1 tab as needed; [facility] 17:56 17:49 PROTHROMBIN TIME PROFILE\E\INR+LAB sent. [facility] 17:56 17:49 PARTIAL THROMBOPLASTIN TIME+LAB sent. [facility] Chart Complete MTDD
--- NOTE | 2016-09-06 19:29 | EDDOCDS ---
Physician Documentation [facility] Name: Marielena Roy Age: 76 yrs Sex: Female : 1940 Arrival Date: 09/04/2016 Time: 16:59 Bed 14 Private MD: Zully Rodriguez Disposition: 09/04 17:54 I concur with the Midlevel Provider's decision to transfer this patient to a Higher [facility] Level of Care Facility. Maurice Leonard MD. Disposition: 09/04/16 17:54 Transfer ordered to [facility]. Diagnosis is Non-ST elevation (NSTEMI) myocardial infarction. - Reason for transfer: Higher level of care. - Accepting physician is Ruth. - Condition is Stable. - Problem is new. - Symptoms are unchanged. Historical: - Allergies: no known allergies; - Home Meds: 1. Advair Diskus 250-50 mcg/dose Inhl dsdv 1 puff 2 times per day (Last dose: 09/04/2016 16:00) 2. atenolol 50 mg Oral tab 1 tab once daily (Last dose: 09/04/2016 08:00) 3. atorvastatin 20 mg oral tab 1 tab nightly (Last dose: 09/03/2016 20:00) 4. [place] 7.5-325 mg Oral tab as needed (Last dose: 09/03/2016 20:00) 5. ropinirole 2 mg oral tab 1 tab nightly (Last dose: 09/03/2016 20:00) 6. nortriptyline 10 mg Oral cap 2 caps nightly (Last dose: 09/03/2016 20:00) 7. montelukast 10 mg oral tab 1 tab once daily (Last dose: 09/04/2016 08:00) 8. Albuterol Inhl 2 puffs as needed 9. nitroglycerin 0.4 mg SL subl 1 tab as needed (Last dose: 09/03/2016 16:00) 10. aspirin 81 mg Oral tab 1 tab once daily (Last dose: 09/03/2016) - PMHx: Diverticulitis; Hypercholesterolemia; Hypertension; Irritable bowel syndrome; [place] (2010); restless leg syndrome; CAD; COPD; - PSHx: Repair of a perforated diverticulum; Tonsillectomy; Cardiac stents; - Social history: Smoking status: Patient states former smoker of tobacco. No barriers to communication noted, The patient speaks fluent Korean. - : The pt / caregiver states he / she is not on anticoagulants. Home medication list is obtained from. - Exposure Risk Screening:: None identified. Vital Signs: 17:00 BP 206 / 114; Pulse 110; Resp 18 S; Temp 96.7; Pulse Ox 99% on R/A; Weight 40.37 kg / dd6 89 lbs (R); Height 4 ft. 7 in. (139.70 cm) (R); 17:25 BP 180 / 88 (auto/); jjr 17:26 Pulse 84 MON; Pulse Ox 99% ; jjr 17:45 BP 172 / 90 (auto/); jjr 17:45 Pulse 84 MON; Resp 18; Pulse Ox 98% on R/A; jjr 18:05 BP 208 / 110 (auto/); jjr 18:05 Pulse 114 MON; jjr 18:23 BP 184 / 98 (auto/); jjr 18:23 Pulse 90 MON; Resp 18; Temp 97(TE); Pulse Ox 97% on R/A; Pain 0/10; jjr 17:00 Body Mass Index 20.69 (40.37 kg, 139.70 cm) dd6 MDM: 17:15 ECG WITH READING ER PHYS+CARDIAG ordered. EDMS 17:24 Aspirin Chewable Tablet 324 mg PO once ordered. le 17:24 Mma Fighter/Pulse Ox/q 30 min VS ordered. le 17:24 IV Saline Lock ordered. le 17:24 Rhythm Strip to chart ordered. le 17:24 Undress patient appropriately for examination ordered. le 17:24 Misc. Nursing Order ordered. le 17:25 Basic Metabolic Profile Ordered. EDMS 17:25 CBC with Diff Ordered. EDMS 17:25 Cardiac Injury Profile Ordered. EDMS 17:25 D-Dimer Quant Ordered. EDMS 17:25 Troponin Ordered. EDMS 17:26 Chest, 2 View (pa\E\lat) Ordered. EDMS 17:43 Nitro-Bid Ointment 2 % 1 inches Transdermal once ordered. le 17:46 Plavix - Clopidogrel 600 mg PO once ordered. le 17:46 heparin (Thrombolytic Protocol, 60 units/kg)) 60 units/kg IVP once; 2400 units ordered. le 17:46 heparin (Thrombolytic Protocol, 12 units/kg/hr)) 72796 units IV at 12 units/kg/hr once; le 480 units/hr ordered. 17:56 PT & APTT Ordered. EDMS 18:20 CBC with Diff Reviewed. le 18:20 PT & APTT Reviewed. le 18:20 D-Dimer Quant Reviewed. le 22:43 [facility] Payment Agreement was scanned into [employer] and attached to record. jp5 22:43 Financial registration complete. jp5 09/05 12:40 T-Sheet-- Draft Copy was scanned into [employer] and attached to record. gb 12:41 ECG/EKG was scanned into [employer] and attached to record. gb Administered Medications: 09/04 17:42 Drug: Aspirin 324 mg [aspirin 81 mg chewable tablet (4 tabs)] Route: PO; jjr 18:07 Drug: heparin (Thrombolytic Protocol, 60 units/kg)) 2422.2 units [heparin (porcine) jjr 5,000 unit/mL injection solution (0.484 mL)] {Co-Signature: srm (Yeni Valentine RN).} Route: IVP; Site: right antecubital; 18:07 Drug: heparin (Thrombolytic Protocol, 12 units/kg/hr)) 02134 units [heparin (porcine) jjr 25,000 unit/250 mL (100 unit/mL) in dextrose 5 % IV] {Co-Signature: srm (Yeni Valentine RN).} Route: IV; Rate: 12 units/kg/hr; Site: right antecubital; 18:08 Drug: Plavix - Clopidogrel 600 mg [clopidogrel 75 mg tablet (8 tabs)] Route: PO; jjr 18:09 Drug: Nitro-Bid 1 inches [Nitro-Bid 2 % transdermal ointment (1 inches)] Route: jjr Transdermal; Site: anterior chest wall; Signatures: Dispatcher [employer] EDMS Ivan Monsalve RN RN dwHolli Pearce, Reg Reg gb Celi Brooks, GAS COMPRESSOR OPERATOR GAS COMPRESSOR OPERATOR Maurice Minor MD MD br1 Ting Miller RN RN Spring Davies jp5 Yeni west The chart was reviewed and I authenticate all verbal orders and agree with the evaluation and treatment provided.Corrections: (The following items were deleted from the chart) 17:13 17:12 Home Meds: nitroglycerin 0.4 mg SL subl 1 tab as needed; dwg dwg 17:56 17:47 PROTHROMBIN TIME PROFILE\E\INR+LAB ordered. EDMS EDMS 17:56 17:47 PARTIAL THROMBOPLASTIN TIME+LAB ordered. EDMS EDMS Attachments: 22:43 [facility] Payment Agreement jp5 09/05 12:40 T-Sheet-- Draft Copy gb 12:41 ECG/EKG gb Chart Complete MTDD
== END 2016-09-04 18:28 | disposition short-term general hospital (02) ==
LOC: M ED 16:59
DX: I21.4 Non-ST elevation (NSTEMI) myocardial infarction (principal); I10 Essential (primary) hypertension; I25.10 Atherosclerotic heart disease of native coronary artery without angina pectoris; I25.2 Old myocardial infarction; J44.9 Chronic obstructive pulmonary disease, unspecified; E78.5 Hyperlipidemia, unspecified; K58.9 Irritable bowel syndrome, unspecified; K57.92 Diverticulitis of intestine, part unspecified, without perforation or abscess without bleeding; G25.81 Restless legs syndrome; Z95.5 Presence of coronary angioplasty implant and graft; Z87.891 Personal history of nicotine dependence; Z79.899 Other long term (current) drug therapy; Z79.82 Long term (current) use of aspirin

== ENCOUNTER → 2016-09-18 | Outpatient (REF) | payer MEDICARE ==
[2016-09-18 16:07] LABS: MEAN CORPUSCULAR HEMOGLOBIN 28.5 pg (27.0-33.0); MEAN CORPUSCULAR HGB CONC 31.6 g/dl (32.0-36.5); MEAN CORPUSCULAR VOLUME 90.2 fl (80.0-96.0); RED CELL DISTRIBUTION WIDTH 13.9 % (11.5-14.5); WHITE BLOOD COUNT 6.2 K/mm3 (4.0-10.0)
== END ==
LOC: M LABDRAW1 15:40
PROVIDERS: ATTEND Nurse Practitioner Family
DX: Z95.5 Presence of coronary angioplasty implant and graft (principal); Z79.899 Other long term (current) drug therapy

== ENCOUNTER → 2017-03-26 | Outpatient (REF) | payer MEDICARE ==
[2017-03-26 13:43] LABS: BLOOD UREA NITROGEN 20 MG/DL (7-18); CREATININE FOR GFR 0.68 MG/DL (0.55-1.02); GLOMERULAR FILTRATION RATE > 60.0 (>39)
== END ==
LOC: M LABNEURO 09:36
PROVIDERS: ATTEND Physician Assistant Medical
DX: I10 Essential (primary) hypertension (principal)

== ENCOUNTER → 2017-08-02 | Outpatient (CLI) | payer MEDICARE ==
[~2017-08-02] MED LIST changes: +ATEN50TA2 PO; +ATOR40TA75 PO; +CLOP75TA2 PO; +LISI-542 PO; +MONT10TA2 PO; +NITR0.4S14 SL; +PROAAER10 INH; +ROPI2TAB PO
[2017-08-02 12:02] LABS: INR 0.95
--- NOTE | 2017-08-02 12:10 | REP ---
Chest x-ray: Two views. History: Preoperative testing. Comparison chest x-ray September 04, 2016. Findings: Severe rotoscoliosis again noted as before. Left coronary artery stents are visible. Heart size is borderline. The lung hollis are clear. Pleural angles are sharp. No other bony abnormality is seen. Impression: Severe rotoscoliosis of the thoracolumbar spine again noted. Coronary artery stent material is visible. Otherwise no acute disease. Signed by Guillermo Cordero MD 08/02/2017 04:11 P
== END ==
LOC: M LAB 11:13
PROVIDERS: ATTEND Family Medicine
DX: Z01.818 Encounter for other preprocedural examination (principal); M41.20 Other idiopathic scoliosis, site unspecified; Z95.5 Presence of coronary angioplasty implant and graft; Z79.01 Long term (current) use of anticoagulants

== ENCOUNTER → 2017-08-04 | Day surgery (SDC) | payer MEDICARE ==
[~2017-08-04] VITALS: Ht 139.7 cm; Wt 39.9 kg
[~2017-08-04] MED LIST changes: +ACETAMINOPHEN 325 MG TAB PO PRN; +ACETYLCHOLINE OPHTH SOLN 1% 2ML (MIOCHOL-E) As Ordered ONE; +ASPIRIN 81 MG CHEW TABLET As Ordered ONE; +ASPIRIN 81 MG CHEW TABLET PO ONE; +ATENOLOL 25 MG TAB As Ordered ONE; +ATENOLOL 25 MG TAB PO ONE; +AcetaZOLAMIDE 500 MG ER CAP PO ONE; +BALANCED SALT IRRIGATION SOLUTION 500ML BAG (FOR OR EYE MACHINE) As Ordered ONE; +CEFUROXIME 1MG/0.1ML INTRACAMERAL INJ As Ordered ONE; +CYCLOPENTOLATE 2% OPHTH SOLN 2ML BTL OD ONE; +HEALON DUET (HEALON 10MG/ML 0.55ML & HEALON ENDOCOAT 30MG/ML 0.85ML) As Ordered ONE; +KETOROLAC 0.5% OPHTH SOLN OD ONE; +LIDOCAINE 1% MDV 20ML VIAL SQ PRN; +LIDOCAINE 1% SDV 5 ML VIAL As Ordered ONE; +LIDOCAINE 3.5 % 1ML OPHTH TOPICAL GEL OU ONE; +MIDAZOLAM INJ 2 MG/2 ML VIAL (J2250) As Ordered ONE; +OFLOXACIN 0.3 % (OCUFLOX) OPTH SOL 5ML OD ONE; +PHENYLEPHRINE 2.5% OPHTH SOL 2ML OD ONE; +PHENYLEPHRINE HCL 10 % OPHTH. SOL 5ML OD PRN; +POVIDONE-IODINE 5% OPHTH PREP SOL 30ML As Ordered ONE; +PROPARACAINE 0.5% OPHTH SOL 15ML OD PRN; +TRIMETHOBENZAMIDE 300 MG CAP PO PRN; +TROPICAMIDE 1% OPHTH SOLN 2ML OD ONE; +fentaNYL 100 MCG/2 ML INJECTION (J3010) As Ordered ONE
[2017-08-04 09:50] VITALS: BP 197/79
--- NOTE | 2017-08-06 11:27 | RO ---
DATE OF PROCEDURE: 08/04/2017 PREPROCEDURE DIAGNOSIS: Age-related nuclear cataract, right eye. POSTPROCEDURE DIAGNOSIS: Age-related nuclear cataract, right eye. PROCEDURE: Phacoemulsification and posterior chamber intraocular lens implantation, right eye. The lens used was AU00T0, 19.5 Diopter. SURGEON: Va Hernandez MD FLAT FINISHER: ANESTHESIA: Topical with sedation. DESCRIPTION OF PROCEDURE: The patient was prepped and draped in the usual fashion. A lid speculum was placed between the lids. The eye was fixated. A stab incision was made to the anterior chamber, and 1% non-preserved lidocaine was instilled. Then, viscoelastic was instilled. The eye was re-fixated. A 2.75 mm sapphire keratome was used to make a clear corneal temporal limbal incision. Capsulorrhexis was begun with a 30-gauge bent needle and then carried out in a circular fashion with capsulorrhexis forceps. The lens was hydrodissected, and then the phacoemulsification unit was used to make a groove in the nucleus in two meridians. The nucleus was then cracked into four quadrants. Each quadrant was removed with the phacoemulsification unit. Any remaining cortex was removed with the irrigation and aspiration (I and A) unit. Capsular bag was refilled with viscoelastic. A posterior chamber intraocular lens was placed in the capsular bag without difficulty. Any remaining viscoelastic was removed with the I and A unit. The wound was hydrated, and Miochol and cefuroxime were instilled into the anterior chamber. The patient tolerated the procedure well and went to the recovery room in stable condition.
== END | disposition home or self-care (01) ==
LOC: M SDC 06:57
PROVIDERS: ATTEND Ophthalmology
DX: H25.11 Age-related nuclear cataract, right eye (principal); I10 Essential (primary) hypertension; Z95.5 Presence of coronary angioplasty implant and graft; I25.2 Old myocardial infarction; K44.9 Diaphragmatic hernia without obstruction or gangrene; M41.9 Scoliosis, unspecified; G35 Multiple sclerosis; J44.9 Chronic obstructive pulmonary disease, unspecified; Z79.899 Other long term (current) drug therapy; Z79.51 Long term (current) use of inhaled steroids; Z79.82 Long term (current) use of aspirin
CPT/HCPCS: 66984; J2250; J3010; V2632

== ENCOUNTER 2017-08-11 08:49 | Day surgery (SDC) | payer MEDICARE ==
[~2017-08-11] VITALS: Ht 137.2 cm; Wt 40.0 kg
[~2017-08-11 08:49] MED LIST changes: -ACETYLCHOLINE OPHTH SOLN 1% 2ML (MIOCHOL-E) As Ordered ONE; -ASPIRIN 81 MG CHEW TABLET As Ordered ONE; -ASPIRIN 81 MG CHEW TABLET PO ONE; -ATENOLOL 25 MG TAB As Ordered ONE; -ATENOLOL 25 MG TAB PO ONE; -AcetaZOLAMIDE 500 MG ER CAP PO ONE; -BALANCED SALT IRRIGATION SOLUTION 500ML BAG (FOR OR EYE MACHINE) As Ordered ONE; -CEFUROXIME 1MG/0.1ML INTRACAMERAL INJ As Ordered ONE; -CYCLOPENTOLATE 2% OPHTH SOLN 2ML BTL OD ONE; +CYCLOPENTOLATE 2% OPHTH SOLN 2ML BTL OS ONE; -HEALON DUET (HEALON 10MG/ML 0.55ML & HEALON ENDOCOAT 30MG/ML 0.85ML) As Ordered ONE; -KETOROLAC 0.5% OPHTH SOLN OD ONE; -LIDOCAINE 1% MDV 20ML VIAL SQ PRN; -LIDOCAINE 1% SDV 5 ML VIAL As Ordered ONE; -MIDAZOLAM INJ 2 MG/2 ML VIAL (J2250) As Ordered ONE; -OFLOXACIN 0.3 % (OCUFLOX) OPTH SOL 5ML OD ONE; +OFLOXACIN 0.3 % (OCUFLOX) OPTH SOL 5ML OS ONE; -PHENYLEPHRINE 2.5% OPHTH SOL 2ML OD ONE; +PHENYLEPHRINE 2.5% OPHTH SOL 2ML OS ONE; -PHENYLEPHRINE HCL 10 % OPHTH. SOL 5ML OD PRN; +PHENYLEPHRINE HCL 10 % OPHTH. SOL 5ML OS PRN; -POVIDONE-IODINE 5% OPHTH PREP SOL 30ML As Ordered ONE; -PROPARACAINE 0.5% OPHTH SOL 15ML OD PRN; +PROPARACAINE 0.5% OPHTH SOL 15ML OS PRN; -TRIMETHOBENZAMIDE 300 MG CAP PO PRN; -TROPICAMIDE 1% OPHTH SOLN 2ML OD ONE; +TROPICAMIDE 1% OPHTH SOLN 2ML OS ONE; -fentaNYL 100 MCG/2 ML INJECTION (J3010) As Ordered ONE
[2017-08-11] MEDS ORDERED: POVIDONE-IODINE 5% OPHTH PREP SOL 30ML As Ordered ONE (09:30)
[2017-08-11] MEDS ORDERED: HEALON DUET (HEALON 10MG/ML 0.55ML & HEALON ENDOCOAT 30MG/ML 0.85ML) As Ordered ONE (09:31)
[2017-08-11] MEDS ORDERED: LIDOCAINE 1% SDV 5 ML VIAL As Ordered ONE (09:31)
[2017-08-11] MEDS ORDERED: CEFUROXIME 1MG/0.1ML INTRACAMERAL INJ As Ordered ONE (09:31)
[2017-08-11] MEDS ORDERED: ACETYLCHOLINE OPHTH SOLN 1% 2ML (MIOCHOL-E) As Ordered ONE (09:31)
[2017-08-11] MEDS ORDERED: BALANCED SALT IRRIGATION SOLUTION 500ML BAG (FOR OR EYE MACHINE) As Ordered ONE (09:51)
[2017-08-11] MEDS ORDERED: fentaNYL 100 MCG/2 ML INJECTION (J3010) As Ordered ONE (10:43)
[2017-08-11] MEDS ORDERED: MIDAZOLAM INJ 2 MG/2 ML VIAL (J2250) As Ordered ONE (10:43)
[2017-08-11 11:30] VITALS: BP 129/62
[2017-08-11] MEDS ORDERED: KETOROLAC 0.5% OPHTH SOLN OS ONE (11:30)
[2017-08-11] MEDS ORDERED: AcetaZOLAMIDE 500 MG ER CAP PO ONE (11:30)
[2017-08-11] MEDS ORDERED: TRIMETHOBENZAMIDE 300 MG CAP PO PRN (11:30)
--- NOTE | 2017-08-11 17:49 | RO ---
DATE OF PROCEDURE: 08/11/2017 PREPROCEDURE DIAGNOSIS: Age-related nuclear cataract left eye. POSTPROCEDURE DIAGNOSIS: Age-related nuclear cataract left eye. PROCEDURE: Phacoemulsification and posterior chamber intraocular lens implantation left eye. The lens used was AU00T0, 20.5 diopters. SURGEON: Va Hernandez MD CADDYMASTER: ANESTHESIA: Topical with sedation. DESCRIPTION OF PROCEDURE: The patient was prepped and draped in the usual fashion. A lid speculum was placed between the lids. The eye was fixated. A stab incision was made to the anterior chamber, and 1% non-preserved lidocaine was instilled. Then, viscoelastic was instilled. The eye was re-fixated. A 2.75 mm sapphire keratome was used to make a clear corneal temporal limbal incision. Capsulorrhexis was begun with a 30-gauge bent needle and then carried out in a circular fashion with capsulorrhexis forceps. The lens was hydrodissected, and then the phacoemulsification unit was used to make a groove in the nucleus in two meridians. The nucleus was then cracked into four quadrants. Each quadrant was removed with the phacoemulsification unit. Any remaining cortex was removed with the irrigation and aspiration (I and A) unit. Capsular bag was refilled with viscoelastic. A posterior chamber intraocular lens was placed in the capsular bag without difficulty. Any remaining viscoelastic was removed with the I and A unit. The wound was hydrated, and Miochol and cefuroxime were instilled into the anterior chamber. The patient tolerated the procedure well and went to the recovery room in stable condition.
== END 2017-08-11 11:38 | disposition home or self-care (01) ==
LOC: M SDC 08:49
PROVIDERS: ATTEND Ophthalmology
DX: H25.12 Age-related nuclear cataract, left eye (principal); I25.2 Old myocardial infarction; I10 Essential (primary) hypertension; K57.32 Diverticulitis of large intestine without perforation or abscess without bleeding; K44.9 Diaphragmatic hernia without obstruction or gangrene; M41.9 Scoliosis, unspecified; G35 Multiple sclerosis; J45.909 Unspecified asthma, uncomplicated; Z79.899 Other long term (current) drug therapy; Z79.82 Long term (current) use of aspirin; Z78.0 Asymptomatic menopausal state; Z95.5 Presence of coronary angioplasty implant and graft
CPT/HCPCS: 66984; J2250; J3010; V2632

== ENCOUNTER 2017-09-24 08:59 | Inpatient (IN) | payer MEDICARE ==
[2017-09-24] MEDS: NS 1,000 ML IV ×2 (09:44→16:27)
[2017-09-24] MEDS: MORPHINE 4 MG/ML 1ML VIAL (J2270) IV ×3 (09:45→20:34)
[2017-09-24 09:57] LABS: BASO # 0.1 10^3/uL (0.0-0.2); BASO % 0.4 % (0.0-1.0); EOS # 0.1 10^3/uL (0.0-0.50); EOS % 0.4 % (0.0-3.0); HEMATOCRIT 44.3 % (36.0-47.0); IMMATURE GRANULOCYTE % 0.3 % (0-3.0); LYMPH # 1.2 10^3/uL (1.5-4.5); LYMPH % 8.4 % (24.0-44.0); MEAN CORPUSCULAR HEMOGLOBIN 27.7 pg (27.0-33.0); MEAN CORPUSCULAR HGB CONC 31.6 g/dl (32.0-36.5); MEAN CORPUSCULAR VOLUME 87.5 fl (80.0-96.0); MONO % 6.9 % (0.0-5.0); NEUTROPHILS # 11.8 10^3/uL (1.8-7.7); NEUTROPHILS % 83.6 % (36.0-66.0); PLATELET COUNT, AUTOMATED 446 10^3/uL (150-450); RED BLOOD COUNT 5.06 10^6/uL (4.00-5.40); RED CELL DISTRIBUTION WIDTH 14.4 % (11.5-14.5); WHITE BLOOD COUNT 14.1 10^3/uL (4.0-10.0)
[2017-09-24 10:09] LABS: INR 0.92; PARTIAL THROMBOPLASTIN TIME 23.7 SECONDS (26.8-37.9); PROTHROMBIN TIME 12.4 SECONDS (12.4-14.5)
[2017-09-24 10:21] LABS: ALBUMIN 4.2 GM/DL (3.2-5.2); ALBUMIN/GLOBULIN RATIO 1.24 (1.00-1.93); ALKALINE PHOSPHATASE 124 U/L (45-117); ALT/SGPT 23 U/L (12-78); ANION GAP 8 MEQ/L (8-16); AST/SGOT 13 U/L (7-37); BILIRUBIN,DIRECT 0.1 MG/DL (0.0-0.2); BILIRUBIN,TOTAL 0.5 MG/DL (0.2-1.0); BLOOD UREA NITROGEN 28 MG/DL (7-18); CALCIUM LEVEL 8.9 MG/DL (8.8-10.2); CARBON DIOXIDE LEVEL 26 MEQ/L (21-32); CHLORIDE LEVEL 107 MEQ/L (98-107); CREATININE FOR GFR 0.67 MG/DL (0.55-1.30); GLOMERULAR FILTRATION RATE > 60.0 (>39); GLUCOSE, FASTING 113 MG/DL (70-100); LIPASE 173 U/L (73-393); POTASSIUM SERUM 3.8 MEQ/L (3.5-5.1); SODIUM LEVEL 141 MEQ/L (136-145); TOTAL PROTEIN 7.6 GM/DL (6.4-8.2)
[2017-09-24 10:24] LABS: LACTIC ACID SEPSIS PROTOCOL 1.7 MMOL/L (0.4-2.0)
[2017-09-24] MEDS ORDERED: ISOVUE-370 76% 100ML VIAL (Q9967) As Ordered (10:40)
[2017-09-24 11:45] LABS: KETONE, URINE AUTO RFX TRACE mg/dL (NEGATIVE); LEUKOCYTE ESTERASE UR AUTO RFX NEGATIVE (NEGATIVE); NITRITE, URINE AUTO RFX NEGATIVE (NEGATIVE); RBC, URINE AUTO RFX 1 /HPF (0-3); SPECIFIC GRAVITY UR AUTO RFX 1.038 (1.002-1.035); SQUAM EPITHELIAL CELL UR AURFX 0 /HPF (0-6); WBC, URINE AUTO RFX 0 /HPF (0-3)
[2017-09-24] MEDS: CETACAINE SPRAY 5GM TOP (13:09)
[2017-09-24] MEDS ORDERED: NS 1,000 ML IV (13:25)
[2017-09-24] MEDS ORDERED: PROMETHAZINE INJ 25 MG/ML VIAL (J2550) IV (13:30)
[2017-09-24] MEDS ORDERED: ONDANSETRON 4MG/2ML VIAL (J2405) IV (13:30)
[2017-09-24] MEDS ORDERED: METOCLOPRAMIDE INJ 10MG/2ML VIAL (J2765) IV (13:30)
[2017-09-24] MEDS ORDERED: IPRATROPIUM 0.5MG/ALBUTEROL 2.5MG INH SOL UD 3ML (DUONEB)(J7620) NEB (13:30)
[2017-09-24] MEDS: IPRATROPIUM 0.5MG/ALBUTEROL 2.5MG INH SOL UD 3ML (DUONEB)(J7620) NEB ×2 (14:23→20:15)
[2017-09-24] MEDS: PANTOPRAZOLE 40MG INJ (PROTONIX) (C9113) IV (16:26)
[2017-09-24] MEDS: LISINOPRIL 5 MG TAB PO (16:26)
[2017-09-24] MEDS: ATENOLOL 50 MG TAB PO (16:27)
[2017-09-24] MEDS: rOPINIRole 1MG TAB PO (20:21)
[2017-09-24] MEDS: MONTELUKAST 10 MG TAB PO (20:21)
[2017-09-25] MEDS: ADVAIR HFA 115/21MCG INHALER INH ×3 (00:26→20:41)
[2017-09-25] MEDS: IPRATROPIUM 0.5MG/ALBUTEROL 2.5MG INH SOL UD 3ML (DUONEB)(J7620) NEB ×4 (01:39→20:00)
[2017-09-25] MEDS: NS 1,000 ML IV ×2 (02:36→10:00)
[2017-09-25 06:37] LABS: HEMATOCRIT 34.9 % (36.0-47.0); MEAN CORPUSCULAR HEMOGLOBIN 27.4 pg (27.0-33.0); MEAN CORPUSCULAR HGB CONC 30.7 g/dl (32.0-36.5); MEAN CORPUSCULAR VOLUME 89.3 fl (80.0-96.0); RED BLOOD COUNT 3.91 10^6/uL (4.00-5.40); RED CELL DISTRIBUTION WIDTH 14.5 % (11.5-14.5)
[2017-09-25 06:48] LABS: HEMOGLOBIN 10.7 g/dl (12.0-16.0); PLATELET COUNT, AUTOMATED 304 10^3/uL (150-450)
[2017-09-25 06:56] LABS: ANION GAP 9 MEQ/L (8-16); BLOOD UREA NITROGEN 18 MG/DL (7-18); CALCIUM LEVEL 8.2 MG/DL (8.8-10.2); CARBON DIOXIDE LEVEL 23 MEQ/L (21-32); CHLORIDE LEVEL 112 MEQ/L (98-107); CREATININE FOR GFR 0.45 MG/DL (0.55-1.30); GLOMERULAR FILTRATION RATE > 60.0 (>39); GLUCOSE, FASTING 53 MG/DL (70-100); SODIUM LEVEL 144 MEQ/L (136-145)
[2017-09-25] MEDS: ASPIRIN 81 MG ENTERIC TAB PO (08:18)
[2017-09-25] MEDS: LISINOPRIL 5 MG TAB PO (08:18)
[2017-09-25] MEDS: ATENOLOL 50 MG TAB PO (08:18)
[2017-09-25] MEDS: PANTOPRAZOLE 40MG INJ (PROTONIX) (C9113) IV (08:18)
[2017-09-25] MEDS: MORPHINE 4 MG/ML 1ML VIAL (J2270) IV ×2 (14:57→20:55)
[2017-09-25] MEDS: MONTELUKAST 10 MG TAB PO (20:46)
[2017-09-25] MEDS: rOPINIRole 1MG TAB PO (20:46)
[2017-09-26] MEDS: IPRATROPIUM 0.5MG/ALBUTEROL 2.5MG INH SOL UD 3ML (DUONEB)(J7620) NEB ×2 (00:54→07:35)
[2017-09-26 05:58] LABS: HEMATOCRIT 31.1 % (36.0-47.0); HEMOGLOBIN 9.8 g/dl (12.0-16.0); MEAN CORPUSCULAR HGB CONC 31.5 g/dl (32.0-36.5); MEAN CORPUSCULAR VOLUME 88.9 fl (80.0-96.0); PLATELET COUNT, AUTOMATED 259 10^3/uL (150-450); RED CELL DISTRIBUTION WIDTH 14.4 % (11.5-14.5)
[2017-09-26 06:18] LABS: ANION GAP 6 MEQ/L (8-16); BLOOD UREA NITROGEN 12 MG/DL (7-18); CALCIUM LEVEL 7.8 MG/DL (8.8-10.2); CARBON DIOXIDE LEVEL 26 MEQ/L (21-32); CHLORIDE LEVEL 115 MEQ/L (98-107); CREATININE FOR GFR 0.51 MG/DL (0.55-1.30); GLOMERULAR FILTRATION RATE > 60.0 (>39); GLUCOSE, FASTING 93 MG/DL (70-100); MAGNESIUM LEVEL 1.8 MG/DL (1.8-2.4); POTASSIUM SERUM 3.9 MEQ/L (3.5-5.1); SODIUM LEVEL 147 MEQ/L (136-145)
[2017-09-26] MEDS: ADVAIR HFA 115/21MCG INHALER INH (07:34)
[2017-09-26] MEDS: PANTOPRAZOLE 40MG INJ (PROTONIX) (C9113) IV (09:00)
[2017-09-26] MEDS: ATENOLOL 50 MG TAB PO (10:09)
[2017-09-26] MEDS: LISINOPRIL 5 MG TAB PO (10:09)
== END 2017-09-26 10:25 | disposition home or self-care (01) | DRG 390 ==
LOC: M ED 08:59 → M ED INP 13:25 → M MS5PR 15:05
DX: K56.609 Unspecified intestinal obstruction, unspecified as to partial versus complete obstruction (principal); G35 Multiple sclerosis; I11.9 Hypertensive heart disease without heart failure; K57.30 Diverticulosis of large intestine without perforation or abscess without bleeding; I25.10 Atherosclerotic heart disease of native coronary artery without angina pectoris; I25.2 Old myocardial infarction; J44.9 Chronic obstructive pulmonary disease, unspecified; D50.9 Iron deficiency anemia, unspecified; Z95.2 Presence of prosthetic heart valve; G25.81 Restless legs syndrome; M41.9 Scoliosis, unspecified; Z79.82 Long term (current) use of aspirin; Z79.899 Other long term (current) drug therapy

== ENCOUNTER → 2018-03-07 | Outpatient (REF) | payer MEDICARE ==
[2018-03-07 13:50] LABS: BLOOD UREA NITROGEN 24 MG/DL (7-18)
[2018-03-07 13:50] LABS: CREATININE FOR GFR 0.79 MG/DL (0.55-1.30); GLOMERULAR FILTRATION RATE > 60.0 (>39)
== END ==
LOC: M LABNEURO 10:20
DX: I10 Essential (primary) hypertension (principal)
CPT/HCPCS: 82565

== ENCOUNTER 2018-10-12 09:28 | Emergency (ER) | payer MEDICARE ==
[~2018-10-12] VITALS: Ht 139.7 cm; Wt 39.5 kg
[~2018-10-12 09:28] MED LIST changes: -ACETAMINOPHEN 325 MG TAB PO PRN; +ADV250INH INH; +ASPI1TAB15 PO; -CYCLOPENTOLATE 2% OPHTH SOLN 2ML BTL OS ONE; -LIDOCAINE 3.5 % 1ML OPHTH TOPICAL GEL OU ONE; -OFLOXACIN 0.3 % (OCUFLOX) OPTH SOL 5ML OS ONE; -PHENYLEPHRINE 2.5% OPHTH SOL 2ML OS ONE; -PHENYLEPHRINE HCL 10 % OPHTH. SOL 5ML OS PRN; -PROPARACAINE 0.5% OPHTH SOL 15ML OS PRN; +REFR0.5D8 OU; -TROPICAMIDE 1% OPHTH SOLN 2ML OS ONE
[2018-10-12] MEDS ORDERED: ATOR40TA75 (09:37)
[2018-10-12] MEDS ORDERED: NORC1TAB4 PO (09:37)
[2018-10-12] MEDS ORDERED: NORC7.5T35 PO (09:37)
[2018-10-12] MEDS ORDERED: NORCO, ANEXSIA 5/325MG TABLET (HYDROcodone/ACETAMINOPHEN) PO ONE (10:00)
--- NOTE | 2018-10-12 10:08 | REP ---
CT Head without contrast HISTORY: Trauma COMPARISON: 03/08/2011 Areas of decreased attenuation are present in the periventricular and subcortical white matter. This represents small-vessel ischemic disease. There is no intraparenchymal hemorrhage, acute infarct, mass or midline shift. The ventricular system and cortical sulci are dilated consistent with mild volume loss. There is no extra cerebral collection. There is no fracture. The visualized sinuses are clear. IMPRESSION: 1. Small-vessel ischemic disease. 2. Mild volume loss. Electronically Signed by Guero Mcclain MD 10/12/2018 10:00 A
--- NOTE | 2018-10-12 10:12 | REP ---
CT cervical spine without contrast HISTORY: Trauma COMPARISON: None There is no acute fracture or subluxation. Disc bulges are present at the C3-4 and C4-5 levels. A disc bulge with associated osteophyte formation is present at the C5-6 level. There is minimal narrowing of the spinal canal. Uncinate process and/or facet hypertrophy are present at the C2-3 through C5-6 levels. These findings produce minimal to mild narrowing of the neural foramina. The C3-4 through C6-7 intervertebral discs are decreased in height consistent with disc degeneration. IMPRESSION: 1. There is no acute fracture or subluxation. 2. There is cervical spondylosis at the C2-3 through C6-7 levels. Electronically Signed by Guero Mcclain MD 10/12/2018 10:04 A
[2018-10-12 10:15] VITALS: BP 220/103
[2018-10-12] MEDS ORDERED: ATENOLOL 25 MG TAB PO ONE (10:15)
[2018-10-12] MEDS ORDERED: LISINOPRIL 5 MG TAB PO ONE (10:15)
[2018-10-12] MEDS ORDERED: OXYC1CAP PO (11:35)
--- NOTE | 2018-10-12 11:40 | REP ---
Clinical: Trauma. Technique: Frontal view of the chest with three oblique views of the right hemithorax. Findings: Evaluation is limited due to severe scoliosis distorts normal anatomical architecture. A nondisplaced fracture along the lateral aspect of the right 8th previous suspected. Impression: Severely limited examination with findings to suggest acute right eighth rib fracture. Electronically Signed by Miguel Lyons MD 10/12/2018 10:32 A
[2018-10-12 11:51] VITALS: BP 141/94
== END 2018-10-12 11:54 | disposition home or self-care (01) ==
LOC: M ED 09:28
DX: S09.90XA Unspecified injury of head, initial encounter (principal); S22.31XA Fracture of one rib, right side, initial encounter for closed fracture; W10.8XXA Fall (on) (from) other stairs and steps, initial encounter; Y92.018 Other place in single-family (private) house as the place of occurrence of the external cause; J44.9 Chronic obstructive pulmonary disease, unspecified; I10 Essential (primary) hypertension; M41.9 Scoliosis, unspecified; I25.10 Atherosclerotic heart disease of native coronary artery without angina pectoris; I25.2 Old myocardial infarction; Z95.5 Presence of coronary angioplasty implant and graft; Z79.899 Other long term (current) drug therapy; Z79.82 Long term (current) use of aspirin

== ENCOUNTER → 2019-05-26 | Outpatient (CLI) | payer MEDICARE ==
[~2019-05-26] MED LIST changes: -/ADVA50050 IN; +ADVA1AER2 IN; +ATOR40TA75; +NORC1TAB7 PO; +NORC1TAB8 PO; +OXYC1CAP PO
[2019-05-26 08:21] LABS: HEMATOCRIT 39.2 % (36.0-47.0); HEMOGLOBIN 12.1 g/dl (12.0-15.5); MEAN CORPUSCULAR HEMOGLOBIN 28.6 pg (27.0-33.0); MEAN CORPUSCULAR HGB CONC 30.9 g/dl (32.0-36.5); MEAN CORPUSCULAR VOLUME 92.7 fl (80.0-96.0); PLATELET COUNT, AUTOMATED 298 10^3/uL (150-450); RED BLOOD COUNT 4.23 10^6/uL (4.00-5.40)
[2019-05-26 08:53] LABS: ALBUMIN 3.7 GM/DL (3.2-5.2); ALT/SGPT 21 U/L (12-78); BILIRUBIN,TOTAL 0.5 MG/DL (0.2-1.0); BLOOD UREA NITROGEN 17 MG/DL (7-18); CALCIUM LEVEL 9.1 MG/DL (8.8-10.2); CARBON DIOXIDE LEVEL 29 MEQ/L (21-32); CHLORIDE LEVEL 111 MEQ/L (98-107); CHOLESTEROL LEVEL 152 MG/DL (<200); CHOLESTEROL RISK RATIO 1.948 (<5); CREATININE FOR GFR 0.66 MG/DL (0.55-1.30); GLOMERULAR FILTRATION RATE > 60.0 (>39); GLUCOSE, FASTING 89 MG/DL (70-100); HDL CHOLESTEROL 78 MG/DL (>40); IRON (FE) 108 UG/DL (50-170); LDL CHOLESTEROL 55 MG/DL (<100); NON-HDL-C 74 MG/DL; PERCENT SATURATION 30.7 % (13.2-45.0); POTASSIUM SERUM 4.1 MEQ/L (3.5-5.1); SODIUM LEVEL 144 MEQ/L (136-145); TOTAL IRON BINDING CAPACITY 352 UG/DL (250-450); TOTAL PROTEIN 6.6 GM/DL (6.4-8.2); TRIGLYCERIDES LEVEL 94 MG/DL (<150)
[2019-05-26 08:55] LABS: TOTAL 25(OH) VITAMIN D 18.9 NG/ML (30.0-100.0)
== END ==
LOC: M LAB 07:48
PROVIDERS: ATTEND Family Medicine
DX: D64.9 Anemia, unspecified (principal); R53.83 Other fatigue; Z79.899 Other long term (current) drug therapy; Z79.82 Long term (current) use of aspirin

== ENCOUNTER → 2020-10-30 | Outpatient (CLI) | payer MEDICARE ==
[~2020-10-30] MED LIST changes: +ASPI-546 PO; -ASPI1TAB15 PO; -LISI-542 PO; +LISI-898 PO; +MONT10TA10 PO; -MONT10TA2 PO; -ROPI2TAB PO; +ROPI2TAB3 PO
[2020-10-30 11:55] LABS: HEMATOCRIT 39.5 % (36.0-47.0); HEMOGLOBIN 12.4 g/dl (12.0-15.5); MEAN CORPUSCULAR HEMOGLOBIN 29.2 pg (27.0-33.0); MEAN CORPUSCULAR HGB CONC 31.4 g/dl (32.0-36.5); MEAN CORPUSCULAR VOLUME 93.2 fl (80.0-96.0); PLATELET COUNT, AUTOMATED 266 10^3/uL (150-450); RED BLOOD COUNT 4.24 10^6/uL (4.00-5.40); WHITE BLOOD COUNT 6.4 10^3/uL (4.0-10.0)
[2020-10-30 12:16] LABS: ALBUMIN 3.7 GM/DL (3.2-5.2); ALT/SGPT 23 U/L (12-78); BILIRUBIN,TOTAL 0.4 MG/DL (0.2-1.0); BLOOD UREA NITROGEN 25 MG/DL (7-18); CARBON DIOXIDE LEVEL 31 MEQ/L (21-32); CHLORIDE LEVEL 110 MEQ/L (98-107); CHOLESTEROL LEVEL 143 MG/DL (<200); CHOLESTEROL RISK RATIO 1.765 (<5); CREATININE FOR GFR 0.56 MG/DL (0.55-1.30); GLOMERULAR FILTRATION RATE > 60.0 (>39); GLUCOSE, FASTING 87 MG/DL (70-100); HDL CHOLESTEROL 81 MG/DL (>40); LDL CHOLESTEROL 49 MG/DL (<100); MAGNESIUM LEVEL 2.1 MG/DL (1.8-2.4); NON-HDL-C 62 MG/DL; POTASSIUM SERUM 4.6 MEQ/L (3.5-5.1); SODIUM LEVEL 144 MEQ/L (136-145); TOTAL PROTEIN 6.5 GM/DL (6.4-8.2); TRIGLYCERIDES LEVEL 67 MG/DL (<150)
== END ==
LOC: M LAB 10:57
PROVIDERS: ATTEND Physician Assistant
DX: I25.10 Atherosclerotic heart disease of native coronary artery without angina pectoris (principal); I50.32 Chronic diastolic (congestive) heart failure; E78.00 Pure hypercholesterolemia, unspecified; E83.42 Hypomagnesemia

== ENCOUNTER → 2021-06-23 | Outpatient (CLI) | payer MEDICARE ==
[2021-06-23 15:35] LABS: HEMATOCRIT 38.7 % (36.0-47.0); HEMOGLOBIN 12.1 g/dl (12.0-15.5); MEAN CORPUSCULAR HEMOGLOBIN 28.7 pg (27.0-33.0); MEAN CORPUSCULAR HGB CONC 31.3 g/dl (32.0-36.5); MEAN CORPUSCULAR VOLUME 91.9 fl (80.0-96.0); PLATELET COUNT, AUTOMATED 334 10^3/uL (150-450); RED BLOOD COUNT 4.21 10^6/uL (4.00-5.40); WHITE BLOOD COUNT 7.8 10^3/uL (4.0-10.0)
[2021-06-23 15:55] LABS: BLOOD UREA NITROGEN 21 MG/DL (7-18); CALCIUM LEVEL 9.3 MG/DL (8.8-10.2); CARBON DIOXIDE LEVEL 29 MEQ/L (21-32); CHLORIDE LEVEL 107 MEQ/L (98-107); GLOMERULAR FILTRATION RATE > 60.0 (>39); GLUCOSE, FASTING 89 MG/DL (70-100); POTASSIUM SERUM 4.5 MEQ/L (3.5-5.1); SODIUM LEVEL 143 MEQ/L (136-145)
== END ==
LOC: M PLALAB 11:58
PROVIDERS: ATTEND Physician Assistant
DX: I50.32 Chronic diastolic (congestive) heart failure (principal); I25.10 Atherosclerotic heart disease of native coronary artery without angina pectoris

== ENCOUNTER → 2021-08-04 | Outpatient (CLI) | payer MEDICARE ==
[~2021-08-04] MED LIST changes: -LISI-898 PO; +LISI5TAB11 PO; -MONT10TA10 PO; +MONT10TA97 PO
[2021-08-04 14:11] LABS: BLOOD UREA NITROGEN 21 MG/DL (7-18); CALCIUM LEVEL 9.5 MG/DL (8.8-10.2); CARBON DIOXIDE LEVEL 31 MEQ/L (21-32); CHLORIDE LEVEL 106 MEQ/L (98-107); CREATININE FOR GFR 0.81 MG/DL (0.55-1.30); GLOMERULAR FILTRATION RATE > 60.0 (>39); GLUCOSE, FASTING 93 MG/DL (70-100); SODIUM LEVEL 140 MEQ/L (136-145)
== END ==
LOC: M PLALAB 10:13
PROVIDERS: ATTEND Physician Assistant
DX: I50.32 Chronic diastolic (congestive) heart failure (principal)

== ENCOUNTER → 2022-08-04 | Outpatient (CLI) | payer MEDICARE ==
[~2022-08-04] MED LIST changes: +ATEN25TA PO; +CHLO125TA PO; +HYDR-4514 PO; +LISI10TA22 PO; +MECL-136 PO; +SPIR-10 PO
== END ==
LOC: M LABSMTC 09:09
PROVIDERS: ATTEND Anesthesiology
DX: Z01.812 Encounter for preprocedural laboratory examination (principal)

== ENCOUNTER 2022-08-06 08:54 | Day surgery (SDC) | payer MEDICARE ==
[~2022-08-06] VITALS: Ht 142.2 cm; Wt 34.9 kg
[~2022-08-06 08:54] MED LIST changes: +NS 1,000 ML IV ONE
[2022-08-06] MEDS ORDERED: propofoL 200 MG/20 ML VIAL As Ordered ONE ×2 (09:47→10:16)
[2022-08-06] MEDS ORDERED: LIDOCAINE 2% 100MG/5ML SDV (FOR ANES.) As Ordered ONE (09:47)
[2022-08-06 10:50] VITALS: BP 170/78
== END 2022-08-06 11:09 | disposition home or self-care (01) ==
LOC: M OPP 08:54
PROVIDERS: ATTEND Surgery
DX: K63.5 Polyp of colon (principal); K52.9 Noninfective gastroenteritis and colitis, unspecified; K57.30 Diverticulosis of large intestine without perforation or abscess without bleeding; K44.9 Diaphragmatic hernia without obstruction or gangrene; K29.70 Gastritis, unspecified, without bleeding; R63.4 Abnormal weight loss; Z79.02 Long term (current) use of antithrombotics/antiplatelets; Z79.51 Long term (current) use of inhaled steroids; Z79.82 Long term (current) use of aspirin; Z79.891 Long term (current) use of opiate analgesic; Z79.899 Other long term (current) drug therapy; G35 Multiple sclerosis; I10 Essential (primary) hypertension; J44.9 Chronic obstructive pulmonary disease, unspecified; F32.9 Major depressive disorder, single episode, unspecified; M41.9 Scoliosis, unspecified; Z80.1 Family history of malignant neoplasm of trachea, bronchus and lung; Z80.49 Family history of malignant neoplasm of other genital organs; Z90.5 Acquired absence of kidney

== ENCOUNTER 2023-07-29 14:24 | Emergency (ER) | payer MEDICARE ==
[~2023-07-29] VITALS: Ht 137.2 cm; Wt 36.3 kg
[~2023-07-29 14:24] MED LIST changes: -NS 1,000 ML IV ONE; -ROPI2TAB3 PO; +ROPI2TAB46 PO
[2023-07-29 16:03] LABS: BASO % 0.3 % (0.0-1.0); EOS # 0.1 10^3/uL (0.0-0.5); EOS % 0.5 % (0.0-3.0); HEMATOCRIT 41.5 % (36.0-47.0); HEMOGLOBIN 13.1 g/dl (12.0-15.5); LYMPH # 0.9 10^3/uL (1.5-5.0); LYMPH % 6.6 % (24.0-44.0); MEAN CORPUSCULAR HEMOGLOBIN 29.3 pg (27.0-33.0); MEAN CORPUSCULAR HGB CONC 31.6 g/dl (32.0-36.5); MEAN CORPUSCULAR VOLUME 92.8 fl (80.0-96.0); MONO # 0.9 10^3/uL (0.0-0.8); MONO % 6.9 % (2.0-8.0); NEUTROPHILS # 11.3 10^3/uL (1.5-8.5); NEUTROPHILS % 85.5 % (36.0-66.0); PLATELET COUNT, AUTOMATED 306 10^3/uL (150-450); RED BLOOD COUNT 4.47 10^6/uL (4.00-5.40); WHITE BLOOD COUNT 13.3 10^3/uL (4.0-10.0)
[2023-07-29 16:19] LABS: LIPASE 55 U/L (12-53)
[2023-07-29 16:21] LABS: ALBUMIN 3.9 G/DL (3.2-5.2); ALKALINE PHOSPHATASE 104 U/L (46-116); ALT/SGPT 15 U/L (7.0-40); AST/SGOT 15 U/L (<34); BILIRUBIN,DIRECT 0.2 MG/DL (<0.4); BILIRUBIN,TOTAL 0.7 MG/DL (0.3-1.2); BLOOD UREA NITROGEN 22 MG/DL (9-23); CALCIUM LEVEL 9.2 MG/DL (8.3-10.6); CARBON DIOXIDE LEVEL 27 MMOL/L (20-31); CHLORIDE LEVEL 105 MMOL/L (98-107); CREATININE FOR GFR 0.72 MG/DL (0.55-1.30); GLOMERULAR FILTRATION RATE > 60.0 (>32); GLUCOSE, FASTING 89 MG/DL (74-106); POTASSIUM SERUM 4.1 MMOL/L (3.5-5.1); SODIUM LEVEL 139 MMOL/L (136-145); TOTAL PROTEIN 6.5 G/DL (5.7-8.2)
[2023-07-29] MEDS ORDERED: ONDANSETRON 4MG 2ML VIAL IV ONE (18:10)
[2023-07-29] MEDS ORDERED: NS 1,000 ML IV ONE (18:10)
[2023-07-29] MEDS ORDERED: ISOVUE-370 76% 100ML VIAL As Ordered ONE (18:49)
[2023-07-29] MEDS ORDERED: AUGMENTIN 875 MG TAB PO ONE (19:40)
[2023-07-29] MEDS ORDERED: AMOX875T2 PO (19:50)
[2023-07-29 20:12] VITALS: BP 170/90; TEMP 98.5; O2SAT 97
== END 2023-07-29 20:14 | disposition home or self-care (01) ==
LOC: M ED 14:24
DX: K57.32 Diverticulitis of large intestine without perforation or abscess without bleeding (principal); N28.89 Other specified disorders of kidney and ureter; I25.2 Old myocardial infarction; I10 Essential (primary) hypertension; J45.909 Unspecified asthma, uncomplicated; G35 Multiple sclerosis; F10.10 Alcohol abuse, uncomplicated; Z79.2 Long term (current) use of antibiotics; Z79.82 Long term (current) use of aspirin; Z79.02 Long term (current) use of antithrombotics/antiplatelets; Z79.811 Long term (current) use of aromatase inhibitors; Z79.899 Other long term (current) drug therapy
CPT/HCPCS: 74177; 80048; 80076; 81001; 83605; 83690; 85025; 87086; 99284; J2405; Q9967

== ENCOUNTER → 2023-10-21 | Outpatient (CLI) | payer MEDICARE ==
[~2023-10-21] MED LIST changes: +AMOX875T2 PO
== END ==
LOC: M RAD 09:12
PROVIDERS: ATTEND Family Medicine
DX: J44.9 Chronic obstructive pulmonary disease, unspecified (principal)

== ENCOUNTER 2023-10-29 08:27 | Observation (INO) | payer MEDICARE ==
[~2023-10-29] VITALS: Ht 142.2 cm; Wt 31.7 kg
[~2023-10-29 08:27] MED LIST changes: -ATOR40TA75
[2023-10-29 09:25] LABS: BASO % 0.3 % (0.0-1.0); EOS # 0.1 10^3/uL (0.0-0.5); HEMATOCRIT 40.3 % (36.0-47.0); HEMOGLOBIN 12.9 g/dl (12.0-15.5); LYMPH # 2.2 10^3/uL (1.5-5.0); LYMPH % 18.1 % (24.0-44.0); MEAN CORPUSCULAR HEMOGLOBIN 29.1 pg (27.0-33.0); MONO % 8.2 % (2.0-8.0); NEUTROPHILS # 8.8 10^3/uL (1.5-8.5); NEUTROPHILS % 71.9 % (36.0-66.0); PLATELET COUNT, AUTOMATED 269 10^3/uL (150-450); RED BLOOD COUNT 4.43 10^6/uL (4.00-5.40); WHITE BLOOD COUNT 12.3 10^3/uL (4.0-10.0)
[2023-10-29 09:44] LABS: CK-MB VALUE MASS 1.5 NG/ML (<3.6); LIPASE 49 U/L (12-53)
[2023-10-29 09:46] LABS: ALBUMIN 3.7 G/DL (3.2-5.2); ALKALINE PHOSPHATASE 85 U/L (46-116); ALT/SGPT 41 U/L (7.0-40); AST/SGOT 17 U/L (<34); BILIRUBIN,DIRECT 0.2 MG/DL (<0.4); BILIRUBIN,TOTAL 0.6 MG/DL (0.3-1.2); BLOOD UREA NITROGEN 24 MG/DL (9-23); CALCIUM LEVEL 9.4 MG/DL (8.3-10.6); CARBON DIOXIDE LEVEL 29 MMOL/L (20-31); CHLORIDE LEVEL 105 MMOL/L (98-107); CPK CREATINE PHOSPHOKINASE 54 U/L (34-145); CREATININE FOR GFR 0.82 MG/DL (0.55-1.30); GLOMERULAR FILTRATION RATE > 60.0 (>32); GLUCOSE, FASTING 97 MG/DL (74-106); MB/CK RELATIVE INDEX 2.77 (< OR =4); POTASSIUM SERUM 3.4 MMOL/L (3.5-5.1); SODIUM LEVEL 141 MMOL/L (136-145); TOTAL PROTEIN 6.3 G/DL (5.7-8.2)
[2023-10-29 09:48] LABS: FREE T4 1.13 NG/DL (0.89-1.76); THYROID STIMULATING HORMONE 2.651 uIU/ML (0.55-4.78)
[2023-10-29 09:50] LABS: INR 1.01; PARTIAL THROMBOPLASTIN TIME 22.4 SECONDS (24.8-34.2)
[2023-10-29 10:14] LABS: RSV AMPLIFICATION NEGATIVE (NEGATIVE)
[2023-10-29] MEDS: TORSEMIDE 10 MG TABLET PO STA (10:14)
[2023-10-29] MEDS: atenoloL 25 MG TAB PO ONE (10:14)
[2023-10-29] MEDS ORDERED: PANT40TA29 PO (12:11)
[2023-10-29] MEDS ORDERED: LISI20TA33 PO (12:11)
[2023-10-29] MEDS ORDERED: TORS5TAB2 PO (12:11)
[2023-10-29] MEDS ORDERED: BUDE10.2 INH (12:11)
[2023-10-29] MEDS ORDERED: PRED10TA2 PO (12:11)
[2023-10-29] MEDS ORDERED: HOME MED LIST COMPLETE! XX SCH (12:15)
[2023-10-29 12:25] LABS: CK-MB VALUE MASS 1.6 NG/ML (<3.6)
[2023-10-29 12:29] LABS: MB/CK RELATIVE INDEX 3.63 (< OR =4)
[2023-10-29] MEDS: hydrALAZINE 20MG/ML 1ML VIAL IV STA ×2 (12:40→15:43)
[2023-10-29] MEDS ORDERED: MOM 30ML SUSPENSION UDC PO PRN (16:30)
[2023-10-29] MEDS ORDERED: MAALOX 30 ML SUSP *UDC PO PRN (16:30)
[2023-10-29] MEDS ORDERED: NITROGLYCERIN 0.4MG SUBL TABLET SL PRN (16:40)
[2023-10-29] MEDS ORDERED: ANEXSIA, NORCO 7.5MG/325MG TABLET(HYDROCODONE/APAP) PO PRN (16:40)
[2023-10-29] MEDS ORDERED: KCL 10MEQ/100ML SWI (KRUN) 10 MEQ in IV 1 EA IV SCH (17:00)
[2023-10-29 18:00] VITALS: BP 148/60; TEMP 98.1; O2SAT 96
[2023-10-29] MEDS: **hydrALAZINE** 10 MG TAB PO ONE (18:23)
[2023-10-29] MEDS: POTASSIUM CHLORIDE 10MEQ SR TABLET PO SCH (18:24)
[2023-10-29] MEDS: SYMBICORT 160/4.5MCG INHALER 6GM INH SCH (19:30)
[2023-10-29 19:38] VITALS: BP 134/52; TEMP 98.1; O2SAT 93
[2023-10-29] MEDS ORDERED: PANTOPRAZOLE 40MG TAB (PROTONIX) PO PRN (19:55)
[2023-10-29] MEDS ORDERED: ARTIFICIAL TEARS DROPS 15ML BTL (VISINE DRY RELIEF) OP PRN (20:30)
[2023-10-29] MEDS: ATORVASTATIN 20 MG TAB PO SCH (20:49)
[2023-10-29] MEDS: rOPINIRole 1MG TAB PO SCH (20:49)
[2023-10-29] MEDS: HEPARIN SOD (PORCINE) 5000UNITS/ML 1ML VIAL/SYRINGE SC SCH (20:50)
[2023-10-29] MEDS ORDERED: **hydrALAZINE** 10 MG TAB PO SCH (21:00)
[2023-10-29 23:50] VITALS: BP 128/60; TEMP 97.8; O2SAT 92
[2023-10-30 03:38] VITALS: BP 164/62; TEMP 98.4; O2SAT 93
[2023-10-30 06:30] LABS: CALCIUM LEVEL 9.1 MG/DL (8.3-10.6); CREATININE FOR GFR 1.23 MG/DL (0.55-1.30); GLOMERULAR FILTRATION RATE 44.6 (>32); POTASSIUM SERUM 4.2 MMOL/L (3.5-5.1)
[2023-10-30 08:00] VITALS: BP 124/62; TEMP 99; O2SAT 97
[2023-10-30 08:01] LABS: BASO % 0.3 % (0.0-1.0); EOS # 0.1 10^3/uL (0.0-0.5); EOS % 0.5 % (0.0-3.0); HEMATOCRIT 36.7 % (36.0-47.0); HEMOGLOBIN 12.1 g/dl (12.0-15.5); LYMPH # 1.2 10^3/uL (1.5-5.0); LYMPH % 11.2 % (24.0-44.0); MEAN CORPUSCULAR HEMOGLOBIN 29.8 pg (27.0-33.0); MEAN CORPUSCULAR VOLUME 90.4 fl (80.0-96.0); MONO # 0.8 10^3/uL (0.0-0.8); MONO % 7.8 % (2.0-8.0); NEUTROPHILS # 8.3 10^3/uL (1.5-8.5); NEUTROPHILS % 79.9 % (36.0-66.0); PLATELET COUNT, AUTOMATED 276 10^3/uL (150-450); RED BLOOD COUNT 4.06 10^6/uL (4.00-5.40); WHITE BLOOD COUNT 10.4 10^3/uL (4.0-10.0)
[2023-10-30] MEDS: ACETAMINOPHEN TAB 650MG DOSE (2X325MG) PO PRN (08:56)
[2023-10-30] MEDS: ASPIRIN 81MG ENTERIC TABLET PO SCH (08:56)
[2023-10-30] MEDS: CLOPIDOGREL 75 MG TAB PO SCH (08:56)
[2023-10-30] MEDS ORDERED: **hydrALAZINE** 10 MG TAB PO SCH ×2 (09:00)
[2023-10-30] MEDS ORDERED: TORSEMIDE 10 MG TABLET PO SCH (09:00)
[2023-10-30 12:00] VITALS: BP 136/70; TEMP 98.6
[2023-10-30 12:32] VITALS: O2SAT 99
[2023-10-30 15:37] VITALS: BP 149/69; TEMP 99.1; O2SAT 99
[2023-10-30 19:49] VITALS: BP 158/66; TEMP 97.9; O2SAT 95
[2023-10-31] VITALS (9 sets, daily range): BP systolic 146–204; BP diastolic 62–88; TEMP 97.6–99.8; O2SAT 90–95
[2023-10-31] MEDS: **hydrALAZINE** 10 MG TAB PO SCH ×2 (09:03→15:27)
[2023-10-31] MEDS: TORSEMIDE 10 MG TABLET PO SCH (09:04)
[2023-10-31] MEDS: **hydrALAZINE** 10 MG TAB PO ONE (11:28)
[2023-10-31 13:29] LABS: BLOOD UREA NITROGEN 42 MG/DL (9-23); CALCIUM LEVEL 8.9 MG/DL (8.3-10.6); CARBON DIOXIDE LEVEL 28 MMOL/L (20-31); CHLORIDE LEVEL 110 MMOL/L (98-107); CREATININE FOR GFR 0.91 MG/DL (0.55-1.30); GLOMERULAR FILTRATION RATE > 60.0 (>32); GLUCOSE, FASTING 83 MG/DL (74-106); SODIUM LEVEL 144 MMOL/L (136-145)
[2023-11-01 03:40] VITALS: BP 178/84; TEMP 98.8; O2SAT 95
[2023-11-01 07:45] VITALS: BP 178/70; TEMP 97.5; O2SAT 96
[2023-11-01 08:13] VITALS: BP 178/80
[2023-11-01] MEDS: amLODIPine 5 MG TAB PO SCH (08:13)
[2023-11-01 10:59] VITALS: BP 148/73
[2023-11-01 12:24] VITALS: BP 160/68; TEMP 98; O2SAT 94
[2023-11-01 12:40] VITALS: BP 152/80
[2023-11-01] MEDS ORDERED: HYDR50TA46 PO (13:31)
[2023-11-01] MEDS ORDERED: AMLO1TAB24 PO (13:31)
[2023-11-01] MEDS ORDERED: HYDR-161 PO (13:42)
[2023-11-01] MEDS ORDERED: **hydrALAZINE** 50 MG TAB PO SCH (16:00)
[2023-11-01] MEDS ORDERED: **hydrALAZINE** 10 MG TAB PO SCH (16:00)
== END 2023-11-01 14:50 | disposition home or self-care (01) ==
LOC: M ED 08:27 → M ED INP 08:28 → ENRESERV 16:36 → M PCU 17:50
PROVIDERS: ADMIT Student in an Organized Health Care Education/Training Program; ATTEND Student in an Organized Health Care Education/Training Program
DX: R07.89 Other chest pain (principal); I16.0 Hypertensive urgency; I25.2 Old myocardial infarction; I25.10 Atherosclerotic heart disease of native coronary artery without angina pectoris; Z98.61 Coronary angioplasty status; I10 Essential (primary) hypertension; E78.5 Hyperlipidemia, unspecified; J44.9 Chronic obstructive pulmonary disease, unspecified; G35 Multiple sclerosis; Z79.82 Long term (current) use of aspirin; Z79.899 Other long term (current) drug therapy; Z79.52 Long term (current) use of systemic steroids; Z79.02 Long term (current) use of antithrombotics/antiplatelets
CPT/HCPCS: 36415; 71045; 80048; 80076; 82550; 82553; 83690; 83735; 83880; 84439; 84443; 84484; 85025; 85610; 85730; 87631; 93005; 93041; 93306; 94640; 94760; 96372; 96374; 97161; 97165; 97530; 99285; G0378; J0360

== ENCOUNTER → 2023-12-15 | Outpatient (CLI) | payer MEDICARE ==
[~2023-12-15] MED LIST changes: +AMLO1TAB24 PO; +BUDE10.2 INH; +HYDR-161 PO; +HYDR50TA46 PO; +LISI20TA33 PO; -OXYC1CAP PO; +OXYC1CAP2 PO; +PANT40TA29 PO; +PRED10TA2 PO; +TORS5TAB2 PO
[2023-12-15 10:33] LABS: CALCIUM LEVEL 8.8 MG/DL (8.3-10.6); CREATININE FOR GFR 1.02 MG/DL (0.55-1.30); GLOMERULAR FILTRATION RATE 55.4 (>32); POTASSIUM SERUM 4.5 MMOL/L (3.5-5.1)
== END ==
LOC: M LAB 09:10
PROVIDERS: ATTEND Physician Assistant
DX: I50.32 Chronic diastolic (congestive) heart failure (principal)

== ENCOUNTER → 2024-01-24 | Outpatient (CLI) | payer MEDICARE ==
[2024-01-24 12:55] LABS: CALCIUM LEVEL 9.1 MG/DL (8.3-10.6); CREATININE FOR GFR 1.45 MG/DL (0.55-1.30); GLOMERULAR FILTRATION RATE 36.9 (>32); POTASSIUM SERUM 4.2 MMOL/L (3.5-5.1)
== END ==
LOC: M LAB 11:33
PROVIDERS: ATTEND Physician Assistant
DX: I50.32 Chronic diastolic (congestive) heart failure (principal)

== ENCOUNTER → 2024-05-12 | Outpatient (CLI) | payer MEDICARE ==
[2024-05-12 12:00] LABS: HEMATOCRIT 35.2 % (36.0-47.0); HEMOGLOBIN 10.5 g/dl (12.0-15.5); MEAN CORPUSCULAR HEMOGLOBIN 28.1 pg (27.0-33.0); MEAN CORPUSCULAR HGB CONC 29.8 g/dl (32.0-36.5); MEAN CORPUSCULAR VOLUME 94.1 fl (80.0-96.0); PLATELET COUNT, AUTOMATED 349 10^3/uL (150-450); RED BLOOD COUNT 3.74 10^6/uL (4.00-5.40); WHITE BLOOD COUNT 8.6 10^3/uL (4.0-10.0)
[2024-05-12 13:19] LABS: ALBUMIN 3.9 G/DL (3.2-5.2); BILIRUBIN,TOTAL 0.5 MG/DL (0.3-1.2); CALCIUM LEVEL 10.3 MG/DL (8.3-10.6); CHOLESTEROL RISK RATIO 2.35 (<5); CREATININE FOR GFR 1.79 MG/DL (0.55-1.30); GLOMERULAR FILTRATION RATE 28.9 (>32); HDL CHOLESTEROL 64.6 MG/DL (>40); LDL CHOLESTEROL 67.8 MG/DL (<100); NON-HDL-C 87.4 MG/DL; POTASSIUM SERUM 6.7 MMOL/L (3.5-5.1); TOTAL PROTEIN 6.9 G/DL (5.7-8.2)
== END ==
LOC: M LAB 11:12
PROVIDERS: ATTEND Physician Assistant
DX: I25.10 Atherosclerotic heart disease of native coronary artery without angina pectoris (principal); I50.32 Chronic diastolic (congestive) heart failure

== ENCOUNTER → 2024-05-12 | Outpatient (CLI) | payer MEDICARE ==
[2024-05-12 12:00] LABS: HEMATOCRIT 34.4 % (36.0-47.0); HEMOGLOBIN 10.8 g/dl (12.0-15.5); MEAN CORPUSCULAR HGB CONC 31.4 g/dl (32.0-36.5); MEAN CORPUSCULAR VOLUME 92.2 fl (80.0-96.0); PLATELET COUNT, AUTOMATED 333 10^3/uL (150-450); RED BLOOD COUNT 3.73 10^6/uL (4.00-5.40); WHITE BLOOD COUNT 8.6 10^3/uL (4.0-10.0)
[2024-05-12 12:33] LABS: PERCENT SATURATION 31.9 % (13.2-45.0)
[2024-05-12 13:07] LABS: HEMOGLOBIN A1c 5.6 % (4.0-6.0)
[2024-05-12 13:38] LABS: BILIRUBIN,TOTAL 0.5 MG/DL (0.3-1.2); CHOLESTEROL RISK RATIO 2.14 (<5); CREATININE FOR GFR 1.81 MG/DL (0.55-1.30); GLOMERULAR FILTRATION RATE 28.6 (>32); HDL CHOLESTEROL 70.5 MG/DL (>40); LDL CHOLESTEROL 61.9 MG/DL (<100); NON-HDL-C 80.5 MG/DL; POTASSIUM SERUM 6.4 MMOL/L (3.5-5.1); THYROID STIMULATING HORMONE 2.149 uIU/ML (0.55-4.78); TOTAL 25(OH) VITAMIN D 18.2 NG/ML (20.0-100.0); TOTAL PROTEIN 6.9 G/DL (5.7-8.2)
== END ==
LOC: M LAB 11:10
PROVIDERS: ATTEND Family Medicine
DX: I11.0 Hypertensive heart disease with heart failure (principal); E03.9 Hypothyroidism, unspecified; R53.83 Other fatigue; I25.10 Atherosclerotic heart disease of native coronary artery without angina pectoris; I50.32 Chronic diastolic (congestive) heart failure; Z79.899 Other long term (current) drug therapy

== ENCOUNTER → 2024-05-15 | Outpatient (CLI) | payer MEDICARE ==
[2024-05-15 09:34] LABS: CALCIUM LEVEL 10.3 MG/DL (8.3-10.6); CREATININE FOR GFR 1.62 MG/DL (0.55-1.30); GLOMERULAR FILTRATION RATE 32.5 (>32); POTASSIUM SERUM 5.1 MMOL/L (3.5-5.1)
== END ==
LOC: M LAB 08:13
PROVIDERS: ATTEND Physician Assistant
DX: I50.32 Chronic diastolic (congestive) heart failure (principal)

== ENCOUNTER → 2024-05-25 | Outpatient (CLI) | payer MEDICARE ==
[2024-05-25 14:01] LABS: CREATININE FOR GFR 1.3 MG/DL (0.55-1.30); GLOMERULAR FILTRATION RATE 41.9 (>32); POTASSIUM SERUM 4.3 MMOL/L (3.5-5.1)
== END ==
LOC: M LAB 09:53
PROVIDERS: ATTEND Physician Assistant
DX: I50.32 Chronic diastolic (congestive) heart failure (principal); E87.5 Hyperkalemia

== ENCOUNTER → 2024-07-05 | Outpatient (CLI) | payer MEDICARE ==
[2024-07-05 10:47] LABS: CALCIUM LEVEL 9.6 MG/DL (8.3-10.6); GLOMERULAR FILTRATION RATE 56.6 (>32); POTASSIUM SERUM 4.7 MMOL/L (3.5-5.1)
== END ==
LOC: M LAB 09:10
PROVIDERS: ATTEND Physician Assistant
DX: I50.32 Chronic diastolic (congestive) heart failure (principal); E87.5 Hyperkalemia

== ENCOUNTER → 2024-09-01 | Outpatient (CLI) | payer MEDICARE ==
[~2024-09-01] MED LIST changes: -ADV250INH INH; +ADVA1AER9 INH
[2024-09-01 10:52] LABS: CALCIUM LEVEL 9.5 MG/DL (8.3-10.6); CREATININE FOR GFR 1.01 MG/DL (0.55-1.30); MAGNESIUM LEVEL 2.3 MG/DL (1.8-2.4); POTASSIUM SERUM 3.9 MMOL/L (3.5-5.1)
== END ==
LOC: M LAB 09:11
PROVIDERS: ATTEND Physician Assistant
DX: I50.32 Chronic diastolic (congestive) heart failure (principal); E83.42 Hypomagnesemia

== ENCOUNTER 2024-09-23 14:33 | Inpatient (IN) | payer MEDICARE ==
[2024-09-23] VITALS (7 sets, daily range): BP systolic 174–178; BP diastolic 64–88; TEMP 98.6–98.9; O2SAT 87–94
[~2024-09-23] VITALS: Ht 139.7 cm; Wt 37.2 kg
[2024-09-23 15:05] LABS: VENOUS BASE EXCESS 5.9 (-2.0-2.0); VENOUS HCO3 31.5 MMOL/L (23.0-27.0); VENOUS O2 SATURATION 60.6 % (60.0-80.0); VENOUS PARTIAL PRESSURE CO2 49.3 mmHg (38.0-50.0); VENOUS PARTIAL PRESSURE O2 31.8 mmHg (30.0-50.0); VENOUS PH 7.423 UNITS (7.330-7.430); VENOUS STANDARD HCO3 28.9 MMOL/L
[2024-09-23 15:10] LABS: BASO % 0.2 % (0.0-1.0); HEMOGLOBIN 11.8 g/dl (12.0-15.5); LYMPH # 0.5 10^3/uL (1.5-5.0); LYMPH % 5.5 % (24.0-44.0); MEAN CORPUSCULAR HEMOGLOBIN 28.2 pg (27.0-33.0); MEAN CORPUSCULAR HGB CONC 31.1 g/dl (32.0-36.5); MEAN CORPUSCULAR VOLUME 90.7 fl (80.0-96.0); MONO # 0.8 10^3/uL (0.0-0.8); MONO % 9.2 % (2.0-8.0); NEUTROPHILS # 7.5 10^3/uL (1.5-8.5); NEUTROPHILS % 84.8 % (36.0-66.0); PLATELET COUNT, AUTOMATED 314 10^3/uL (150-450); RED BLOOD COUNT 4.19 10^6/uL (4.00-5.40); WHITE BLOOD COUNT 8.8 10^3/uL (4.0-10.0)
[2024-09-23] MEDS: methylPREDNISolone 125MG 2ML VIAL IV ONE (15:11)
[2024-09-23] MEDS: IPRATROPIUM 0.5MG/ALBUTEROL 2.5MG INH SOL UD 3ML (DUONEB) NEB PRN (15:13)
[2024-09-23] MEDS: hydrALAZINE 20MG/ML 1ML VIAL IV STA ×2 (15:27→15:46)
[2024-09-23 15:40] LABS: ALBUMIN 3.8 G/DL (3.2-5.2); BILIRUBIN,DIRECT 0.2 MG/DL (<0.4); BILIRUBIN,TOTAL 0.4 MG/DL (0.3-1.2); CALCIUM LEVEL 8.9 MG/DL (8.3-10.6); GLOMERULAR FILTRATION RATE 56.5 (>32); POTASSIUM SERUM 3.9 MMOL/L (3.5-5.1); TOTAL PROTEIN 6.8 G/DL (5.7-8.2)
[2024-09-23 15:43] LABS: THYROID STIMULATING HORMONE 1.539 uIU/ML (0.55-4.78)
[2024-09-23] MEDS ORDERED: ISOVUE-370 76% 100ML VIAL As Ordered ONE (15:45)
[2024-09-23] MEDS: IPRATROPIUM 0.5MG/ALBUTEROL 2.5MG INH SOL UD 3ML (DUONEB) NEB SCH (16:00)
[2024-09-23] MEDS: FUROSEMIDE 20MG/2ML VIAL IV ONE ×3 (16:09→18:27)
[2024-09-23] MEDS ORDERED: MECLIZINE 12.5 MG TAB PO PRN (17:00)
[2024-09-23] MEDS ORDERED: POLYVINYL ALCOHOL OPHTH SOLN 15ML (LIQUITEARS) OU PRN (17:05)
[2024-09-23] MEDS ORDERED: TORS20TA2 PO (17:14)
[2024-09-23] MEDS ORDERED: XALA0.007 OU (17:14)
[2024-09-23] MEDS ORDERED: ALBU8.5H INH (17:14)
[2024-09-23] MEDS ORDERED: HYDR25TA87 PO (17:14)
[2024-09-23] MEDS ORDERED: NEBI5TAB2 PO (17:14)
[2024-09-23] MEDS ORDERED: HOME MED LIST COMPLETE! XX SCH (17:15)
[2024-09-23] MEDS ORDERED: NEBIVOLOL 5 MG TAB (BYSTOLIC) PO SCH (17:50)
[2024-09-23] MEDS: LABETALOL 100MG/20ML VIAL IV STA (18:28)
[2024-09-23] MEDS: PANTOPRAZOLE 40MG TAB (PROTONIX) PO SCH (18:28)
[2024-09-23] MEDS: D5W 1,000 ML IV SCH (18:39)
[2024-09-23] MEDS: SYMBICORT 160/4.5MCG INHALER 6GM INH SCH (19:38)
[2024-09-23] MEDS ORDERED: LABETALOL 100MG TAB PO SCH (21:00)
[2024-09-23] MEDS ORDERED: **hydrALAZINE** 10 MG TAB PO SCH (21:00)
[2024-09-23] MEDS: oxyCODONE 5MG TAB PO PRN (22:00)
[2024-09-23] MEDS: LATANOPROST 0.005% OPHTH SOLN 2.5 ML OU SCH (22:38)
[2024-09-23] MEDS: ATORVASTATIN 20 MG TAB PO SCH (22:39)
[2024-09-23] MEDS: **hydrALAZINE HCL** 25 MG TAB PO SCH (22:40)
[2024-09-23] MEDS: NEBIVOLOL 5 MG TAB (BYSTOLIC) PO SCH (22:41)
[2024-09-23] MEDS: rOPINIRole 2MG TAB PO SCH (22:42)
[2024-09-23] MEDS: methylPREDNISolone 40MG 1ML VIAL IV SCH (22:42)
[2024-09-23] MEDS: MONTELUKAST 10 MG TAB PO SCH (22:42)
[2024-09-24] VITALS (36 sets, daily range): BP systolic 143–210; BP diastolic 67–100; TEMP 97.7–99.4; O2SAT 1–99
[2024-09-24] MEDS: hydrALAZINE 20MG/ML 1ML VIAL IV PRN (03:37)
[2024-09-24] MEDS: ACETAMINOPHEN 325 MG TAB PO PRN (04:23)
[2024-09-24] MEDS: LABETALOL 100MG/20ML VIAL IV STA ×2 (04:33→22:58)
[2024-09-24 05:41] LABS: HEMATOCRIT 31.2 % (36.0-47.0); HEMOGLOBIN 9.9 g/dl (12.0-15.5); MEAN CORPUSCULAR HEMOGLOBIN 28.2 pg (27.0-33.0); MEAN CORPUSCULAR HGB CONC 31.7 g/dl (32.0-36.5); MEAN CORPUSCULAR VOLUME 88.9 fl (80.0-96.0); PLATELET COUNT, AUTOMATED 244 10^3/uL (150-450); RED BLOOD COUNT 3.51 10^6/uL (4.00-5.40); WHITE BLOOD COUNT 4.6 10^3/uL (4.0-10.0)
[2024-09-24 05:57] LABS: CALCIUM LEVEL 8.2 MG/DL (8.3-10.6); CREATININE FOR GFR 1.32 MG/DL (0.55-1.30); POTASSIUM SERUM 3.4 MMOL/L (3.5-5.1)
[2024-09-24] MEDS ORDERED: amLODIPine 5 MG TAB PO SCH (09:00)
[2024-09-24] MEDS: HEPARIN SOD (PORCINE) 5000UNITS/ML 1ML VIAL/SYRINGE SQ SCH (09:15)
[2024-09-24] MEDS: CLOPIDOGREL 75 MG TAB PO SCH (09:16)
[2024-09-24] MEDS: ASPIRIN 81MG CHEW TABLET PO SCH (09:16)
[2024-09-24] MEDS: POTASSIUM CHLORIDE 10MEQ SR TABLET PO ONE (09:17)
[2024-09-24] MEDS: SPIRONOLACTONE 50 MG TAB PO ONE (16:37)
[2024-09-24] MEDS: **hydrALAZINE HCL** 25 MG TAB PO SCH (18:35)
[2024-09-24] MEDS: LABETALOL 200 MG TAB PO SCH (21:00)
[2024-09-25] VITALS (26 sets, daily range): BP systolic 108–203; BP diastolic 51–90; TEMP 97.2–98.6; O2SAT 82–99
[2024-09-25] MEDS: CEPACOL LOZENGE PO PRN (05:36)
[2024-09-25 07:41] LABS: HEMATOCRIT 34.6 % (36.0-47.0); HEMOGLOBIN 10.8 g/dl (12.0-15.5); MEAN CORPUSCULAR HEMOGLOBIN 28.3 pg (27.0-33.0); MEAN CORPUSCULAR HGB CONC 31.2 g/dl (32.0-36.5); MEAN CORPUSCULAR VOLUME 90.8 fl (80.0-96.0); PLATELET COUNT, AUTOMATED 418 10^3/uL (150-450); RED BLOOD COUNT 3.81 10^6/uL (4.00-5.40); WHITE BLOOD COUNT 29.8 10^3/uL (4.0-10.0)
[2024-09-25 08:31] LABS: CALCIUM LEVEL 9.1 MG/DL (8.3-10.6); CREATININE FOR GFR 2.15 MG/DL (0.55-1.30); GLOMERULAR FILTRATION RATE 23.4 (>32); MAGNESIUM LEVEL 2.2 MG/DL (1.8-2.4); POTASSIUM SERUM 5.2 MMOL/L (3.5-5.1)
[2024-09-25 09:05] LABS: PROCALCITONIN 0.31 ng/ml
[2024-09-25] MEDS: methylPREDNISolone 40MG 1ML VIAL IV SCH (09:44)
[2024-09-25] MEDS: ISOSORBIDE MON. (IMDUR) 30MG XR TAB PO SCH (09:45)
[2024-09-25] MEDS: cefTRIAXone SOD 1 GM in DEXTROSE 5% (D5W) ADV/MINI-BAG 50 ML IV SCH (14:19)
[2024-09-25 15:42] LABS: CALCIUM LEVEL 8.6 MG/DL (8.3-10.6); CREATININE FOR GFR 2.8 MG/DL (0.55-1.30); GLOMERULAR FILTRATION RATE 17.2 (>32); MAGNESIUM LEVEL 2.2 MG/DL (1.8-2.4); POTASSIUM SERUM 5.2 MMOL/L (3.5-5.1)
[2024-09-25 17:31] LABS: ABG BASE EXCESS -3.1 (-2.0-2.0); ABG HCO3 22.9 MMOL/L (22.0-26.0); ABG O2 SATURATION 95.1 % (95.0-99.0); ABG PARTIAL PRESSURE O2 82.7 mmHg (75.0-100.0); ABG STANDARD HCO3 21.8 MMOL/L. (22.0-26.0); ABG TOTAL CO2 24.3 MMOL/L (23.0-31.0); ABG pH (ARTERIAL) 7.324 UNITS (7.350-7.450)
[2024-09-25] MEDS: methylPREDNISolone 125MG 2ML VIAL IV ONE (17:48)
[2024-09-25] MEDS ORDERED: VANCOMYCIN HCL 1,000 MG, VIAL MATE ADAPTER 1 EACH in NS 250 ML IV SCH (18:00)
[2024-09-25] MEDS: PATIROMER SORBITEX CALCIUM 8.4 GM POWDER PACKET (VELTASSA) PO ONE (18:58)
[2024-09-25] MEDS: PIPERACILLIN/TAZOBACTAM SOD 4.5 GM in DEXTROSE 5% (D5W) ADV/MINI-BAG 50 ML IV SCH (18:59)
[2024-09-25] MEDS: NEBIVOLOL 5 MG TAB (BYSTOLIC) PO SCH (20:39)
[2024-09-25] MEDS: VANCOMYCIN HCL 750 MG, VIAL MATE ADAPTER 1 EACH in NS 250 ML IV ONE (20:41)
[2024-09-25] MEDS ORDERED: VANCOMYCIN INTERMITTENT/PULSE DOSING BY CLINICAL PHARMACIST PER DOSING PROTOCOL XX SCH (21:00)
[2024-09-26] VITALS (21 sets, daily range): BP systolic 108–188; BP diastolic 55–81; TEMP 97.2–98.8; O2SAT 92–99
[2024-09-26 00:29] LABS: ABG BASE EXCESS -2.9 (-2.0-2.0); ABG HCO3 24.2 MMOL/L (22.0-26.0); ABG PARTIAL PRESSURE CO2 53.3 mmHg (35.0-45.0); ABG PARTIAL PRESSURE O2 108.8 mmHg (75.0-100.0); ABG TOTAL CO2 25.8 MMOL/L (23.0-31.0); ABG pH (ARTERIAL) 7.275 UNITS (7.350-7.450)
[2024-09-26 00:38] LABS: CALCIUM LEVEL 8.5 MG/DL (8.3-10.6); CREATININE FOR GFR 3.5 MG/DL (0.55-1.30); GLOMERULAR FILTRATION RATE 13.3 (>32); POTASSIUM SERUM 5.5 MMOL/L (3.5-5.1)
[2024-09-26] MEDS: methylPREDNISolone 125MG 2ML VIAL IV SCH (02:22)
[2024-09-26] MEDS: OLANZapine INTRAMUSCULAR 10MG VIAL IM ONE (03:13)
[2024-09-26 05:28] LABS: HEMATOCRIT 29.4 % (36.0-47.0); MEAN CORPUSCULAR HEMOGLOBIN 28.1 pg (27.0-33.0); MEAN CORPUSCULAR HGB CONC 30.6 g/dl (32.0-36.5); MEAN CORPUSCULAR VOLUME 91.9 fl (80.0-96.0); WHITE BLOOD COUNT 17.3 10^3/uL (4.0-10.0)
[2024-09-26 05:47] LABS: PLATELET COUNT, AUTOMATED 240 10^3/uL (150-450)
[2024-09-26 05:53] LABS: ABG BASE EXCESS -2.3 (-2.0-2.0); ABG O2 SATURATION 98.2 % (95.0-99.0); ABG PARTIAL PRESSURE CO2 41.7 mmHg (35.0-45.0); ABG PARTIAL PRESSURE O2 114.4 mmHg (75.0-100.0); ABG STANDARD HCO3 22.5 MMOL/L. (22.0-26.0); ABG TOTAL CO2 24.3 MMOL/L (23.0-31.0); ABG pH (ARTERIAL) 7.359 UNITS (7.350-7.450)
[2024-09-26 06:15] LABS: VANCOMYCIN RANDOM 16.4 UG/ML
[2024-09-26 06:16] LABS: CALCIUM LEVEL 8.4 MG/DL (8.3-10.6); CREATININE FOR GFR 3.96 MG/DL (0.55-1.30); GLOMERULAR FILTRATION RATE 11.5 (>32); MAGNESIUM LEVEL 2.6 MG/DL (1.8-2.4); POTASSIUM SERUM 5.2 MMOL/L (3.5-5.1)
[2024-09-26] MEDS ORDERED: VARIBAR PUDDING 40% w/v 230ML TUBE As Ordered ONE (08:20)
[2024-09-26] MEDS ORDERED: BARIUM SULFATE 700 MG TABLET (E-Z-DISK) As Ordered ONE (08:21)
[2024-09-26] MEDS ORDERED: E-Z-PAQUE 96% w/w SUSP 176GM BTL As Ordered ONE (08:21)
[2024-09-26] MEDS ORDERED: VARIBAR NECTAR 40% w/v 240ML SUSP BTL As Ordered ONE (08:21)
[2024-09-26] MEDS: FUROSEMIDE injection 100 MG, VIAL 2 BAG 13MM ADAPTER 1 EACH in NS 100 ML IV SCH (09:25)
[2024-09-26] MEDS: FUROSEMIDE 40MG/4ML VIAL IV ONE (09:25)
[2024-09-26] MEDS ORDERED: LEVALBUTEROL HFA 45MCG/ACT 15GM INHALER INH PRN (10:45)
[2024-09-26] MEDS: HEPARIN 1,000UNITS/ML 10ML VIAL (FOR RADIOLOGY & DIALYSIS ONLY) IV STA (14:41)
[2024-09-26 16:11] LABS: BLOOD UREA NITROGEN 91 MG/DL (9-23); CARBON DIOXIDE LEVEL 23 MMOL/L (20-31); CHLORIDE LEVEL 103 MMOL/L (98-107); CREATININE FOR GFR 4.37 MG/DL (0.55-1.30); GLOMERULAR FILTRATION RATE 10.3 (>32); GLUCOSE, FASTING 147 MG/DL (74-106); POTASSIUM SERUM 5.5 MMOL/L (3.5-5.1); SODIUM LEVEL 137 MMOL/L (136-145)
[2024-09-26] MEDS ORDERED: HEPARIN 1,000UNITS/ML 10ML VIAL (FOR RADIOLOGY & DIALYSIS ONLY) IV PRN (16:40)
[2024-09-26] MEDS ORDERED: SODIUM CHLORIDE 0.9% 1000 ML IV PRN (16:40)
[2024-09-26] MEDS: HEPARIN 1,000UNITS/ML 10ML VIAL (FOR RADIOLOGY & DIALYSIS ONLY) XX SCH (17:47)
[2024-09-26 18:09] LABS: HEPATITIS B CORE ANTIBODY IGM NEGATIVE (NEGATIVE); HEPATITIS B SURFACE ANTIBODY NEGATIVE (POSITIVE); HEPATITIS B SURFACE ANTIGEN NEGATIVE (NEGATIVE); HEPATITIS C VIRUS ABY INDEX 0.13 INDEX (<0.8)
[2024-09-26] MEDS: hydrALAZINE 20MG/ML 1ML VIAL IV PRN (21:56)
[2024-09-27] VITALS (16 sets, daily range): BP systolic 144–203; BP diastolic 51–133; TEMP 96.8–98.4; O2SAT 93–100
[2024-09-27] MEDS: OLANZapine INTRAMUSCULAR 10MG VIAL IM ONE ×2 (01:26→05:49)
[2024-09-27] MEDS: OLANZapine INTRAMUSCULAR 10MG VIAL IM PRN (03:21)
[2024-09-27 04:49] LABS: HEMATOCRIT 28.7 % (36.0-47.0); HEMOGLOBIN 8.9 g/dl (12.0-15.5); MEAN CORPUSCULAR HEMOGLOBIN 28.3 pg (27.0-33.0); MEAN CORPUSCULAR VOLUME 91.1 fl (80.0-96.0); PLATELET COUNT, AUTOMATED 332 10^3/uL (150-450); RED BLOOD COUNT 3.15 10^6/uL (4.00-5.40)
[2024-09-27] MEDS: NEBIVOLOL 5 MG TAB (BYSTOLIC) PO SCH ×2 (06:00→16:45)
[2024-09-27] MEDS: **hydrALAZINE HCL** 25 MG TAB PO SCH ×2 (06:00→16:45)
[2024-09-27] MEDS ORDERED: LORazepam 1 MG TAB PO PRN (06:15)
[2024-09-27] MEDS ORDERED: SCOPOLAMINE 1MG TRANSDERMAL PATCH TOP PRN (06:15)
[2024-09-27] MEDS ORDERED: ATROPINE SULFATE 1% OPHTH SOLN 2ML BTL SL PRN (06:15)
[2024-09-27] MEDS ORDERED: ONDANSETRON 4MG 2ML VIAL IV PRN (06:15)
[2024-09-27] MEDS ORDERED: FLEET ENEMA PR PRN (06:15)
[2024-09-27 06:27] LABS: CALCIUM LEVEL 8.4 MG/DL (8.3-10.6); CREATININE FOR GFR 3.32 MG/DL (0.55-1.30); GLOMERULAR FILTRATION RATE 14.1 (>32); MAGNESIUM LEVEL 2.5 MG/DL (1.8-2.4)
[2024-09-27] MEDS ORDERED: SYMBICORT 160/4.5MCG INHALER 6GM INH SCH (08:00)
[2024-09-27] MEDS: MORPHINE 2 MG/ML 1ML VIAL IV PRN (09:49)
[2024-09-27] MEDS: predniSONE 10MG TAB PO SCH (12:25)
[2024-09-27] MEDS: amLODIPine 5 MG TAB PO SCH (12:26)
[2024-09-27] MEDS: ASPIRIN 81MG ENTERIC TABLET PO SCH (12:26)
[2024-09-27] MEDS: CLOPIDOGREL 75 MG TAB PO SCH (12:26)
[2024-09-27 15:05] LABS: HEMATOCRIT 29.4 % (36.0-47.0); HEMOGLOBIN 9.3 g/dl (12.0-15.5); MEAN CORPUSCULAR HEMOGLOBIN 28.9 pg (27.0-33.0); MEAN CORPUSCULAR HGB CONC 31.6 g/dl (32.0-36.5); MEAN CORPUSCULAR VOLUME 91.3 fl (80.0-96.0); PLATELET COUNT, AUTOMATED 311 10^3/uL (150-450); RED BLOOD COUNT 3.22 10^6/uL (4.00-5.40); WHITE BLOOD COUNT 15.7 10^3/uL (4.0-10.0)
[2024-09-27 15:38] LABS: CALCIUM LEVEL 8.1 MG/DL (8.3-10.6); CREATININE FOR GFR 3.87 MG/DL (0.55-1.30); GLOMERULAR FILTRATION RATE 11.9 (>32); POTASSIUM SERUM 4.4 MMOL/L (3.5-5.1)
[2024-09-27] MEDS: PIPERACILLIN/TAZOBACTAM SOD 4.5 GM in DEXTROSE 5% (D5W) ADV/MINI-BAG 50 ML IV SCH (16:44)
[2024-09-27] MEDS: SYMBICORT 160/4.5MCG INHALER 6GM INH SCH (19:27)
[2024-09-27] MEDS: MONTELUKAST 10 MG TAB PO SCH (21:59)
[2024-09-27] MEDS: ATORVASTATIN 20 MG TAB PO SCH (21:59)
[2024-09-28] VITALS: BP 170/63; TEMP 97.2; O2SAT 98
[2024-09-28 04:00] VITALS: BP 176/69; TEMP 97.3; O2SAT 98
[2024-09-28] MEDS ORDERED: SODIUM CHLORIDE 0.9% 1000 ML IV PRN (06:00)
[2024-09-28] MEDS ORDERED: HEPARIN 1,000UNITS/ML 10ML VIAL (FOR RADIOLOGY & DIALYSIS ONLY) XX SCH (06:00)
[2024-09-28 06:38] VITALS: BP 153/68
[2024-09-28] MEDS: HEPARIN 1,000UNITS/ML 10ML VIAL (FOR RADIOLOGY & DIALYSIS ONLY) IV PRN (08:53)
[2024-09-28 12:06] LABS: HEMATOCRIT 28.7 % (36.0-47.0); HEMOGLOBIN 8.9 g/dl (12.0-15.5); MEAN CORPUSCULAR HEMOGLOBIN 27.9 pg (27.0-33.0); PLATELET COUNT, AUTOMATED 292 10^3/uL (150-450); RED BLOOD COUNT 3.19 10^6/uL (4.00-5.40); WHITE BLOOD COUNT 15.8 10^3/uL (4.0-10.0)
[2024-09-28 13:34] LABS: CALCIUM LEVEL 8.3 MG/DL (8.3-10.6); CREATININE FOR GFR 2.42 MG/DL (0.55-1.30); GLOMERULAR FILTRATION RATE 20.4 (>32); POTASSIUM SERUM 3.8 MMOL/L (3.5-5.1)
[2024-09-28] MEDS: cefTRIAXone SOD 1 GM in DEXTROSE 5% (D5W) ADV/MINI-BAG 50 ML IV SCH (15:34)
[2024-09-28 16:30] VITALS: O2SAT 92
[2024-09-28 20:00] VITALS: BP 177/69; TEMP 96.8; O2SAT 90
[2024-09-28] MEDS ORDERED: PILL CUTTER 1 EACH XX ONE (21:37)
[2024-09-28] MEDS: HYDROmorphone 2 MG TAB PO PRN (21:41)
[2024-09-28 23:05] VITALS: O2SAT 97
[2024-09-29] VITALS: BP 177/77; TEMP 99.6; O2SAT 98
[2024-09-29 04:00] VITALS: BP 178/61; TEMP 99.6; O2SAT 95
[2024-09-29 06:03] LABS: HEMATOCRIT 25.3 % (36.0-47.0); HEMOGLOBIN 8.1 g/dl (12.0-15.5); MEAN CORPUSCULAR HEMOGLOBIN 28.6 pg (27.0-33.0); MEAN CORPUSCULAR VOLUME 89.4 fl (80.0-96.0); PLATELET COUNT, AUTOMATED 291 10^3/uL (150-450); RED BLOOD COUNT 2.83 10^6/uL (4.00-5.40); WHITE BLOOD COUNT 13.3 10^3/uL (4.0-10.0)
[2024-09-29 06:28] LABS: CALCIUM LEVEL 8.5 MG/DL (8.3-10.6); CREATININE FOR GFR 3.09 MG/DL (0.55-1.30); GLOMERULAR FILTRATION RATE 15.4 (>32)
[2024-09-29 08:03] LABS: MAGNESIUM LEVEL 2.5 MG/DL (1.8-2.4)
[2024-09-29] MEDS: IPRATROPIUM 0.5MG/ALBUTEROL 2.5MG INH SOL UD 3ML (DUONEB) NEB PRN (11:21)
[2024-09-29 14:00] VITALS: BP 172/78; TEMP 97; O2SAT 93
[2024-09-29 19:46] LABS: HEMOGLOBIN 7.2 g/dl (12.0-15.5)
[2024-09-29 20:56] VITALS: BP 175/98; TEMP 97; O2SAT 93
[2024-09-30] VITALS (17 sets, daily range): BP systolic 142–220; BP diastolic 52–101; TEMP 96.8–98.2; O2SAT 92–98
[2024-09-30] MEDS ORDERED: LIDOCAINE 1% SDV 5ML VIAL SC PRN (06:00)
[2024-09-30] MEDS ORDERED: SODIUM CHLORIDE 0.9% 1000 ML IV PRN (06:00)
[2024-09-30] MEDS ORDERED: HEPARIN 1,000UNITS/ML 10ML VIAL (FOR RADIOLOGY & DIALYSIS ONLY) IV PRN (06:00)
[2024-09-30] MEDS ORDERED: HEPARIN 1,000UNITS/ML 10ML VIAL (FOR RADIOLOGY & DIALYSIS ONLY) XX SCH (06:00)
[2024-09-30 09:03] LABS: MEAN CORPUSCULAR HEMOGLOBIN 28.3 pg (27.0-33.0); MEAN CORPUSCULAR HGB CONC 31.9 g/dl (32.0-36.5); MEAN CORPUSCULAR VOLUME 88.6 fl (80.0-96.0); PLATELET COUNT, AUTOMATED 272 10^3/uL (150-450); RED BLOOD COUNT 2.37 10^6/uL (4.00-5.40); WHITE BLOOD COUNT 12.8 10^3/uL (4.0-10.0)
[2024-09-30 09:05] LABS: HEMOGLOBIN 6.7 g/dl (12.0-15.5)
[2024-09-30 09:45] LABS: BLOOD UREA NITROGEN 120 MG/DL (9-23); CALCIUM LEVEL 8.6 MG/DL (8.3-10.6); CARBON DIOXIDE LEVEL 26 MMOL/L (20-31); CHLORIDE LEVEL 106 MMOL/L (98-107); CREATININE FOR GFR 1.98 MG/DL (0.55-1.30); GLOMERULAR FILTRATION RATE 25.7 (>32); GLUCOSE, FASTING 269 MG/DL (74-106); SODIUM LEVEL 142 MMOL/L (136-145)
[2024-09-30 11:34] LABS: IRON (FE) 183 UG/DL (50-170); PERCENT SATURATION 65.4 % (13.2-45.0); TOTAL IRON BINDING CAPACITY 280 UG/DL (250-425)
[2024-09-30 11:37] LABS: FERRITIN 70.1 NG/ML (7.3-270.7); FOLATE 13.1 NG/ML (>5.4)
[2024-09-30 11:41] LABS: VITAMIN B12 LEVEL > 2000 PG/ML (211-911)
[2024-09-30] MEDS: PANTOPRAZOLE 40MG VIAL IV SCH (12:11)
[2024-09-30] MEDS: rOPINIRole 1MG TAB PO ONE (12:12)
[2024-09-30] MEDS ORDERED: PIPERACILLIN/TAZOBACTAM SOD 3.375 GM in DEXTROSE 5% (D5W) ADV/MINI-BAG 50 ML IV SCH (13:00)
[2024-09-30] MEDS ORDERED: FUROSEMIDE 40MG/4ML VIAL As Ordered ONE (13:00)
[2024-09-30] MEDS: FUROSEMIDE 40MG/4ML VIAL IV ONE (13:16)
[2024-09-30] MEDS: **hydrALAZINE** 50 MG TAB PO ONE ×2 (13:17→16:41)
[2024-09-30] MEDS: **hydrALAZINE** 50 MG TAB PO SCH (13:17)
[2024-09-30] MEDS: PIPERACILLIN/TAZOBACTAM SOD 4.5 GM in DEXTROSE 5% (D5W) ADV/MINI-BAG 50 ML IV SCH (14:25)
[2024-09-30] MEDS: LEVALBUTEROL 1.25MG 0.5ML CONCENTRATE NEB INH SCH (18:18)
[2024-09-30] MEDS: SODIUM CHLORIDE HYPERTONIC 3% 4ML NEB SOL INH SCH (18:18)
[2024-09-30] MEDS: LABETALOL 100MG/20ML VIAL IV PRN (18:41)
[2024-09-30] MEDS: METOPROLOL SUCC (TopROL XL) 50MG **XL** TAB PO SCH (20:29)
[2024-09-30] MEDS: **hydrALAZINE HCL** 25 MG TAB PO SCH (20:31)
[2024-09-30] MEDS: methylPREDNISolone 40MG 1ML VIAL IV SCH (20:31)
[2024-09-30 21:30] LABS: HEMATOCRIT 27.1 % (36.0-47.0)
[2024-09-30] MEDS: hydrALAZINE 20MG/ML 1ML VIAL IV PRN (22:44)
[2024-10-01] VITALS (32 sets, daily range): BP systolic 148–223; BP diastolic 58–122; TEMP 96.9–98.2; O2SAT 86–100
[2024-10-01 05:35] LABS: BASO % 0.3 % (0.0-1.0); EOS % 0.1 % (0.0-3.0); HEMATOCRIT 26.5 % (36.0-47.0); HEMOGLOBIN 8.9 g/dl (12.0-15.5); LYMPH # 0.4 10^3/uL (1.5-5.0); LYMPH % 3.4 % (24.0-44.0); MEAN CORPUSCULAR HEMOGLOBIN 28.1 pg (27.0-33.0); MEAN CORPUSCULAR HGB CONC 33.6 g/dl (32.0-36.5); MEAN CORPUSCULAR VOLUME 83.6 fl (80.0-96.0); MONO # 0.3 10^3/uL (0.0-0.8); MONO % 2.7 % (2.0-8.0); NEUTROPHILS # 11.1 10^3/uL (1.5-8.5); NEUTROPHILS % 88.5 % (36.0-66.0); PLATELET COUNT, AUTOMATED 243 10^3/uL (150-450); RED BLOOD COUNT 3.17 10^6/uL (4.00-5.40); WHITE BLOOD COUNT 12.6 10^3/uL (4.0-10.0)
[2024-10-01 05:57] LABS: CALCIUM LEVEL 8.5 MG/DL (8.3-10.6); CREATININE FOR GFR 1.8 MG/DL (0.55-1.30); GLOMERULAR FILTRATION RATE 28.7 (>32); POTASSIUM SERUM 3.8 MMOL/L (3.5-5.1)
[2024-10-01] MEDS: **hydrALAZINE** 50 MG TAB PO SCH (07:45)
[2024-10-01] MEDS: TERAZOSIN 1 MG CAP PO SCH ×2 (10:51→21:01)
[2024-10-02] MEDS ORDERED: PROMETHAZINE 25MG/ML 1ML VIAL IM PRN (03:20)
[2024-10-02 03:31] VITALS: BP 175/79; TEMP 98.4; O2SAT 97
[2024-10-02 06:32] LABS: HEMATOCRIT 25.4 % (36.0-47.0); HEMOGLOBIN 8.4 g/dl (12.0-15.5); MEAN CORPUSCULAR HEMOGLOBIN 27.8 pg (27.0-33.0); MEAN CORPUSCULAR HGB CONC 33.1 g/dl (32.0-36.5); MEAN CORPUSCULAR VOLUME 84.1 fl (80.0-96.0); PLATELET COUNT, AUTOMATED 275 10^3/uL (150-450); RED BLOOD COUNT 3.02 10^6/uL (4.00-5.40); WHITE BLOOD COUNT 13.6 10^3/uL (4.0-10.0)
[2024-10-02 06:57] LABS: CALCIUM LEVEL 8.6 MG/DL (8.3-10.6); CREATININE FOR GFR 2.53 MG/DL (0.55-1.30); GLOMERULAR FILTRATION RATE 19.4 (>32); POTASSIUM SERUM 3.4 MMOL/L (3.5-5.1)
[2024-10-02 07:41] VITALS: BP 159/70; TEMP 99.3; O2SAT 97
[2024-10-02 07:44] LABS: LYMPHOCYTES 3 % (16-44); MONOCYTES 7 % (0-5); MYELOCYTES 1 % (0-0); NEUTROPHILS 89 % (28-66)
[2024-10-02 07:46] LABS: OVALOCYTES 2+; PLATELET ESTIMATE NORMAL (NORMAL); POIKILOCYTOSIS 2+
[2024-10-02 12:00] VITALS: BP 162/70; TEMP 99; O2SAT 94
[2024-10-02 16:00] VITALS: BP 124/60; TEMP 99.7; O2SAT 96
[2024-10-02 19:18] VITALS: BP 159/94; TEMP 97.6; O2SAT 96
[2024-10-02 23:20] VITALS: BP 167/74; TEMP 97; O2SAT 98
[2024-10-03] VITALS (8 sets, daily range): BP systolic 153–182; BP diastolic 62–76; TEMP 97–98.3; O2SAT 93–100
[2024-10-03 05:51] LABS: BASO # 0.1 10^3/uL (0.0-0.2); BASO % 0.3 % (0.0-1.0); EOS % 0.1 % (0.0-3.0); HEMATOCRIT 23.5 % (36.0-47.0); HEMOGLOBIN 7.8 g/dl (12.0-15.5); LYMPH # 0.6 10^3/uL (1.5-5.0); LYMPH % 3.2 % (24.0-44.0); MEAN CORPUSCULAR HEMOGLOBIN 27.7 pg (27.0-33.0); MEAN CORPUSCULAR HGB CONC 33.2 g/dl (32.0-36.5); MEAN CORPUSCULAR VOLUME 83.3 fl (80.0-96.0); MONO # 1.2 10^3/uL (0.0-0.8); MONO % 7.1 % (2.0-8.0); NEUTROPHILS # 14.4 10^3/uL (1.5-8.5); NEUTROPHILS % 82.7 % (36.0-66.0); PLATELET COUNT, AUTOMATED 304 10^3/uL (150-450); RED BLOOD COUNT 2.82 10^6/uL (4.00-5.40); WHITE BLOOD COUNT 17.4 10^3/uL (4.0-10.0)
[2024-10-03 06:17] LABS: CALCIUM LEVEL 8.5 MG/DL (8.3-10.6); CREATININE FOR GFR 2.58 MG/DL (0.55-1.30); GLOMERULAR FILTRATION RATE 18.9 (>32); POTASSIUM SERUM 3.2 MMOL/L (3.5-5.1)
[2024-10-03] MEDS: predniSONE 20 MG TAB PO SCH (08:49)
[2024-10-03] MEDS ORDERED: POTASSIUM CHLORIDE 10MEQ SR TABLET PO SCH (09:20)
[2024-10-03] MEDS: POTASSIUM CHLORIDE 10% LIQ 20MEQ/15ML UDC PO SCH (13:06)
[2024-10-04] VITALS (8 sets, daily range): BP systolic 144–167; BP diastolic 65–84; TEMP 97–98.7; O2SAT 94–100
[2024-10-04 06:18] LABS: BASO # 0.1 10^3/uL (0.0-0.2); BASO % 0.2 % (0.0-1.0); HEMATOCRIT 22.9 % (36.0-47.0); HEMOGLOBIN 7.4 g/dl (12.0-15.5); LYMPH # 0.5 10^3/uL (1.5-5.0); LYMPH % 2.4 % (24.0-44.0); MEAN CORPUSCULAR HEMOGLOBIN 27.3 pg (27.0-33.0); MEAN CORPUSCULAR HGB CONC 32.3 g/dl (32.0-36.5); MEAN CORPUSCULAR VOLUME 84.5 fl (80.0-96.0); MONO # 1.3 10^3/uL (0.0-0.8); MONO % 6.6 % (2.0-8.0); NEUTROPHILS # 16.7 10^3/uL (1.5-8.5); NEUTROPHILS % 83.2 % (36.0-66.0); PLATELET COUNT, AUTOMATED 336 10^3/uL (150-450); RED BLOOD COUNT 2.71 10^6/uL (4.00-5.40); WHITE BLOOD COUNT 20.1 10^3/uL (4.0-10.0)
[2024-10-04 06:29] LABS: CALCIUM LEVEL 8.8 MG/DL (8.3-10.6); CREATININE FOR GFR 2.5 MG/DL (0.55-1.30); GLOMERULAR FILTRATION RATE 19.6 (>32); MAGNESIUM LEVEL 2.4 MG/DL (1.8-2.4); PHOSPHORUS LEVEL 4.6 MG/DL (2.4-5.1); POTASSIUM SERUM 3.7 MMOL/L (3.5-5.1)
[2024-10-04 08:31] LABS: PROCALCITONIN 0.25 ng/ml
[2024-10-04] MEDS: ONDANSETRON 4MG 2ML VIAL IV PRN (10:35)
[2024-10-05] VITALS (7 sets, daily range): BP systolic 150–189; BP diastolic 55–78; TEMP 97.5–98.3; O2SAT 93–99
[2024-10-05 09:50] LABS: BASO % 0.2 % (0.0-1.0); EOS % 0.2 % (0.0-3.0); HEMATOCRIT 23.4 % (36.0-47.0); HEMOGLOBIN 7.4 g/dl (12.0-15.5); LYMPH # 0.4 10^3/uL (1.5-5.0); LYMPH % 1.9 % (24.0-44.0); MEAN CORPUSCULAR HEMOGLOBIN 27.5 pg (27.0-33.0); MEAN CORPUSCULAR HGB CONC 31.6 g/dl (32.0-36.5); MONO # 0.7 10^3/uL (0.0-0.8); MONO % 3.4 % (2.0-8.0); NEUTROPHILS # 17.5 10^3/uL (1.5-8.5); NEUTROPHILS % 89.5 % (36.0-66.0); PLATELET COUNT, AUTOMATED 328 10^3/uL (150-450); RED BLOOD COUNT 2.69 10^6/uL (4.00-5.40); WHITE BLOOD COUNT 19.6 10^3/uL (4.0-10.0)
[2024-10-05 10:09] LABS: CALCIUM LEVEL 8.4 MG/DL (8.3-10.6); CREATININE FOR GFR 2.79 MG/DL (0.55-1.30); GLOMERULAR FILTRATION RATE 17.3 (>32); POTASSIUM SERUM 3.7 MMOL/L (3.5-5.1)
[2024-10-06] VITALS (7 sets, daily range): BP systolic 145–178; BP diastolic 64–72; TEMP 96.7–98.2; O2SAT 91–98
[2024-10-06 07:36] LABS: HEMATOCRIT 21.6 % (36.0-47.0); MEAN CORPUSCULAR HEMOGLOBIN 27.9 pg (27.0-33.0); MEAN CORPUSCULAR HGB CONC 32.4 g/dl (32.0-36.5); MEAN CORPUSCULAR VOLUME 86.1 fl (80.0-96.0); PLATELET COUNT, AUTOMATED 289 10^3/uL (150-450); RED BLOOD COUNT 2.51 10^6/uL (4.00-5.40); WHITE BLOOD COUNT 20.8 10^3/uL (4.0-10.0)
[2024-10-06 08:05] LABS: CALCIUM LEVEL 8.3 MG/DL (8.3-10.6); CREATININE FOR GFR 3.67 MG/DL (0.55-1.30); GLOMERULAR FILTRATION RATE 12.6 (>32); POTASSIUM SERUM 3.2 MMOL/L (3.5-5.1)
[2024-10-06] MEDS ORDERED: POTASSIUM CHLORIDE 10MEQ SR TABLET PO SCH (09:00)
[2024-10-06] MEDS: LR 1,000 ML IV SCH (10:22)
[2024-10-06 12:03] LABS: HEMATOCRIT 22.5 % (36.0-47.0); HEMOGLOBIN 7.2 g/dl (12.0-15.5)
[2024-10-06] MEDS: POTASSIUM CHLORIDE 10MEQ SR TABLET PO SCH (15:25)
[2024-10-07] VITALS (12 sets, daily range): BP systolic 154–176; BP diastolic 68–77; TEMP 97.5–98.6; O2SAT 93–97
[2024-10-07 05:50] LABS: MEAN CORPUSCULAR HEMOGLOBIN 27.3 pg (27.0-33.0); MEAN CORPUSCULAR HGB CONC 32.1 g/dl (32.0-36.5); MEAN CORPUSCULAR VOLUME 85.3 fl (80.0-96.0); PLATELET COUNT, AUTOMATED 305 10^3/uL (150-450); RED BLOOD COUNT 2.45 10^6/uL (4.00-5.40); WHITE BLOOD COUNT 20.8 10^3/uL (4.0-10.0)
[2024-10-07 05:59] LABS: HEMATOCRIT 20.9 % (36.0-47.0); HEMOGLOBIN 6.7 g/dl (12.0-15.5)
[2024-10-07 06:13] LABS: CALCIUM LEVEL 8.3 MG/DL (8.3-10.6); CREATININE FOR GFR 4.02 MG/DL (0.55-1.30); GLOMERULAR FILTRATION RATE 11.3 (>32); POTASSIUM SERUM 3.7 MMOL/L (3.5-5.1)
[2024-10-07 08:06] LABS: PROCALCITONIN 0.28 ng/ml
[2024-10-07 14:01] LABS: HEMATOCRIT 27.9 % (36.0-47.0)
[2024-10-07 14:02] LABS: HEMOGLOBIN 9.2 g/dl (12.0-15.5)
[2024-10-08 03:37] VITALS: BP 155/70; TEMP 97.2; O2SAT 96
[2024-10-08 06:21] LABS: HEMATOCRIT 28.2 % (36.0-47.0); HEMOGLOBIN 9.1 g/dl (12.0-15.5); MEAN CORPUSCULAR HEMOGLOBIN 29.1 pg (27.0-33.0); MEAN CORPUSCULAR HGB CONC 32.3 g/dl (32.0-36.5); MEAN CORPUSCULAR VOLUME 90.1 fl (80.0-96.0); PLATELET COUNT, AUTOMATED 288 10^3/uL (150-450); RED BLOOD COUNT 3.13 10^6/uL (4.00-5.40); WHITE BLOOD COUNT 18.5 10^3/uL (4.0-10.0)
[2024-10-08 06:56] LABS: CALCIUM LEVEL 8.5 MG/DL (8.3-10.6); CREATININE FOR GFR 3.55 MG/DL (0.55-1.30); GLOMERULAR FILTRATION RATE 13.1 (>32); POTASSIUM SERUM 3.9 MMOL/L (3.5-5.1)
[2024-10-08 07:48] VITALS: BP 187/74; TEMP 96.9; O2SAT 95
[2024-10-08 12:04] VITALS: BP 174/79; O2SAT 92
[2024-10-08] MEDS: FUROSEMIDE 100MG/10ML VIAL IV ONE (13:29)
[2024-10-08 15:40] VITALS: BP 143/65; TEMP 97.9; O2SAT 97
[2024-10-08 19:53] VITALS: BP 179/74; TEMP 97.8; O2SAT 91
[2024-10-08 23:48] VITALS: BP 157/70; TEMP 97.5; O2SAT 92
[2024-10-09 03:39] VITALS: BP 140/78; TEMP 97.6; O2SAT 96
[2024-10-09 07:56] LABS: HEMATOCRIT 27.2 % (36.0-47.0); HEMOGLOBIN 8.7 g/dl (12.0-15.5); MEAN CORPUSCULAR HEMOGLOBIN 28.9 pg (27.0-33.0); MEAN CORPUSCULAR VOLUME 90.4 fl (80.0-96.0); PLATELET COUNT, AUTOMATED 262 10^3/uL (150-450); RED BLOOD COUNT 3.01 10^6/uL (4.00-5.40); WHITE BLOOD COUNT 14.5 10^3/uL (4.0-10.0)
[2024-10-09 08:00] VITALS: BP 163/73; TEMP 97.1; O2SAT 94
[2024-10-09 08:20] LABS: CALCIUM LEVEL 8.2 MG/DL (8.3-10.6); CREATININE FOR GFR 4.09 MG/DL (0.55-1.30); GLOMERULAR FILTRATION RATE 11.1 (>32); POTASSIUM SERUM 4.2 MMOL/L (3.5-5.1)
[2024-10-09] MEDS ORDERED: HEPARIN 1,000UNITS/ML 10ML VIAL (FOR RADIOLOGY & DIALYSIS ONLY) IV PRN (10:20)
[2024-10-09] MEDS ORDERED: SODIUM CHLORIDE 0.9% 1000 ML IV PRN (10:20)
[2024-10-09 12:00] VITALS: BP 141/63; TEMP 97; O2SAT 91
[2024-10-09] MEDS: FUROSEMIDE 100MG/10ML VIAL IV ONE (12:24)
[2024-10-09 16:00] VITALS: BP 163/70; TEMP 97.2; O2SAT 96
[2024-10-09] MEDS: NS (Normal Saline) 0.9% 1,000 ML IV SCH (16:45)
[2024-10-09] MEDS ORDERED: LIDOCAINE 1% MDV 20ML VIAL As Ordered ONE (16:53)
[2024-10-09] MEDS ORDERED: MIDAZOLAM INJ 2MG/2ML VIAL As Ordered ONE (16:53)
[2024-10-09] MEDS ORDERED: fentaNYL 100 MCG/2 ML INJECTION As Ordered ONE (16:53)
[2024-10-09] MEDS ORDERED: ceFAZolin 2 GM/D5W 50 ML IV BAG As Ordered ONE (16:54)
[2024-10-09] MEDS: MIDAZOLAM INJ 2MG/2ML VIAL IV PRN (17:24)
[2024-10-09] MEDS: fentaNYL 100 MCG/2 ML INJECTION IV PRN (17:24)
[2024-10-09] MEDS: ceFAZolin SOD 2 GM in IV 1 EA IV ONE (17:25)
[2024-10-09] MEDS ORDERED: ISOVUE-300 61% 100ML VIAL As Ordered ONE (17:35)
[2024-10-09] MEDS: HEPARIN 1,000UNITS/ML 10ML VIAL (FOR RADIOLOGY & DIALYSIS ONLY) IV PRN (17:54)
[2024-10-09] MEDS: LIDOCAINE 1% MDV 20ML VIAL SC ONE (17:55)
[2024-10-09] MEDS: ISOVUE-300 61% 100ML VIAL IV ONE (18:01)
[2024-10-09] MEDS: HEPARIN 1,000UNITS/ML 10ML VIAL (FOR RADIOLOGY & DIALYSIS ONLY) XX SCH (18:36)
[2024-10-09 21:33] VITALS: BP 166/74; TEMP 97.9; O2SAT 92
[2024-10-10] VITALS (13 sets, daily range): BP systolic 153–184; BP diastolic 62–80; TEMP 97–99; O2SAT 78–100
[2024-10-10 07:21] LABS: HEMATOCRIT 28.5 % (36.0-47.0); HEMOGLOBIN 9.2 g/dl (12.0-15.5); MEAN CORPUSCULAR HEMOGLOBIN 28.7 pg (27.0-33.0); MEAN CORPUSCULAR HGB CONC 32.3 g/dl (32.0-36.5); MEAN CORPUSCULAR VOLUME 88.8 fl (80.0-96.0); PLATELET COUNT, AUTOMATED 268 10^3/uL (150-450); RED BLOOD COUNT 3.21 10^6/uL (4.00-5.40); WHITE BLOOD COUNT 14.8 10^3/uL (4.0-10.0)
[2024-10-10 07:59] LABS: CALCIUM LEVEL 8.6 MG/DL (8.3-10.6); CREATININE FOR GFR 1.77 MG/DL (0.55-1.30); GLOMERULAR FILTRATION RATE 29.2 (>32); POTASSIUM SERUM 4.3 MMOL/L (3.5-5.1)
[2024-10-10] MEDS: predniSONE 20 MG TAB PO SCH (14:00)
[2024-10-11] VITALS (8 sets, daily range): BP systolic 146–208; BP diastolic 70–94; TEMP 97.8–99.6; O2SAT 95–99
[2024-10-11] MEDS ORDERED: SODIUM CHLORIDE 0.9% 1000 ML IV PRN (06:00)
[2024-10-11] MEDS ORDERED: HEPARIN 1,000UNITS/ML 10ML VIAL (FOR RADIOLOGY & DIALYSIS ONLY) IV PRN (06:00)
[2024-10-11 06:13] LABS: HEMATOCRIT 27.3 % (36.0-47.0); HEMOGLOBIN 8.9 g/dl (12.0-15.5); MEAN CORPUSCULAR HEMOGLOBIN 29.3 pg (27.0-33.0); MEAN CORPUSCULAR HGB CONC 32.6 g/dl (32.0-36.5); MEAN CORPUSCULAR VOLUME 89.8 fl (80.0-96.0); PLATELET COUNT, AUTOMATED 229 10^3/uL (150-450); RED BLOOD COUNT 3.04 10^6/uL (4.00-5.40); WHITE BLOOD COUNT 10.5 10^3/uL (4.0-10.0)
[2024-10-11 06:42] LABS: CALCIUM LEVEL 8.3 MG/DL (8.3-10.6); CREATININE FOR GFR 2.39 MG/DL (0.55-1.30); GLOMERULAR FILTRATION RATE 20.7 (>32); POTASSIUM SERUM 4.6 MMOL/L (3.5-5.1)
[2024-10-11] MEDS: HEPARIN 1,000UNITS/ML 10ML VIAL (FOR RADIOLOGY & DIALYSIS ONLY) XX SCH (09:58)
[2024-10-12 03:44] VITALS: BP 159/69; TEMP 97.5; O2SAT 97
[2024-10-12 05:59] LABS: HEMATOCRIT 27.3 % (36.0-47.0); HEMOGLOBIN 8.5 g/dl (12.0-15.5); MEAN CORPUSCULAR HEMOGLOBIN 28.6 pg (27.0-33.0); MEAN CORPUSCULAR HGB CONC 31.1 g/dl (32.0-36.5); MEAN CORPUSCULAR VOLUME 91.9 fl (80.0-96.0); PLATELET COUNT, AUTOMATED 190 10^3/uL (150-450); RED BLOOD COUNT 2.97 10^6/uL (4.00-5.40); WHITE BLOOD COUNT 10.4 10^3/uL (4.0-10.0)
[2024-10-12 06:30] LABS: CALCIUM LEVEL 8.3 MG/DL (8.3-10.6); CREATININE FOR GFR 1.55 MG/DL (0.55-1.30); GLOMERULAR FILTRATION RATE 34.1 (>32); POTASSIUM SERUM 4.3 MMOL/L (3.5-5.1)
[2024-10-12 07:35] VITALS: BP 158/97; TEMP 99.5; O2SAT 99
[2024-10-12 11:56] VITALS: BP 148/63; TEMP 99; O2SAT 98
[2024-10-12 15:35] VITALS: BP 161/70; TEMP 98.2
[2024-10-12 20:21] VITALS: BP 178/79; TEMP 97.9; O2SAT 99
[2024-10-12 23:40] VITALS: BP 178/81; TEMP 97.6; O2SAT 98
[2024-10-13 04:34] VITALS: BP 169/76; TEMP 98.5; O2SAT 99
[2024-10-13 07:29] VITALS: BP 166/84; TEMP 98.5; O2SAT 97
[2024-10-13] MEDS: CARBAMIDE PEROXIDE 6.5% OTIC SOLN 15ML AS SCH (11:43)
[2024-10-13] MEDS ORDERED: HYOSCYAMINE SULFATE 0.125 MG SUBL TABLET PO PRN (12:05)
[2024-10-13] MEDS ORDERED: ONDANSETRON 4MG ORAL DISINTEGRATING TAB PO PRN (12:05)
[2024-10-13] MEDS ORDERED: ATROPINE SULFATE 1% OPHTH SOLN 2ML BTL SL PRN (12:05)
[2024-10-13] MEDS ORDERED: SODIUM CHLORIDE 0.9% 1000 ML IV PRN (12:40)
[2024-10-13] MEDS ORDERED: HEPARIN 1,000UNITS/ML 10ML VIAL (FOR RADIOLOGY & DIALYSIS ONLY) XX SCH (12:40)
[2024-10-13] MEDS ORDERED: HEPARIN 1,000UNITS/ML 10ML VIAL (FOR RADIOLOGY & DIALYSIS ONLY) IV PRN (12:40)
[2024-10-13] MEDS: MORPHINE 10MG/0.5ML ORAL CONCENTRATE SOLUTION U/D SL PRN (12:59)
[2024-10-13] MEDS: TERAZOSIN 1 MG CAP PO SCH (20:24)
[2024-10-15] MEDS: LORazepam 1 MG TAB PO PRN (18:07)
[2024-10-17 21:02] VITALS: BP 160/74
[2024-10-18] MEDS ORDERED: TERA1CAP3 PO (07:22)
[2024-10-18] MEDS ORDERED: METO1TAB7 PO (07:22)
[2024-10-18] MEDS ORDERED: HYDR50TA46 PO (07:22)
[2024-10-18] MEDS ORDERED: ATIV1TAB7 PO (07:22)
[2024-10-18] MEDS ORDERED: AMLO1TAB25 PO (07:22)
[2024-10-18] MEDS ORDERED: ONDA-282 PO (07:22)
[2024-10-18] MEDS ORDERED: MORP1SOL5 PO (07:22)
[2024-10-18] MEDS ORDERED: ACET32TAB PO (07:22)
[2024-10-18] MEDS ORDERED: ATRO2DRO4 SL (07:22)
[2024-10-18] MEDS ORDERED: PRED20TA PO (07:22)
== END 2024-10-18 13:40 | disposition home or self-care (01) | DRG 291 ==
LOC: M ED 14:33 → M ED INP 17:07 → M PCU 20:58 → M ICU 09-26 03:25 → M MSPAV 09-27 13:27 → M ICU 09-30 16:19 → M PCU 10-01 18:40 → M MS5PR 10-13 14:53
PROVIDERS: ADMIT Student in an Organized Health Care Education/Training Program; ATTEND Student in an Organized Health Care Education/Training Program
PROC: 5A1D70Z Performance of Urinary Filtration, Intermittent, Less than 6 Hours Per Day (ICD-10-PCS; 2024-09-26)
PROC: 30233N1 Transfusion of Nonautologous Red Blood Cells into Peripheral Vein, Percutaneous Approach (ICD-10-PCS; 2024-09-30)
PROC: 02HV33Z Insertion of Infusion Device into Superior Vena Cava, Percutaneous Approach (ICD-10-PCS; 2024-10-09)
PROC: 0JH60XZ Insertion of Tunneled Vascular Access Device into Chest Subcutaneous Tissue and Fascia, Open Approach (ICD-10-PCS; principal; 2024-10-09 16:00)
DX: I13.0 Hypertensive heart and chronic kidney disease with heart failure and stage 1 through stage 4 chronic kidney disease, or unspecified chronic kidney disease (principal); I50.33 Acute on chronic diastolic (congestive) heart failure; J69.0 Pneumonitis due to inhalation of food and vomit; J96.01 Acute respiratory failure with hypoxia; J12.1 Respiratory syncytial virus pneumonia; E87.0 Hyperosmolality and hypernatremia; J44.1 Chronic obstructive pulmonary disease with (acute) exacerbation; J21.0 Acute bronchiolitis due to respiratory syncytial virus; E87.29 Other acidosis; D62 Acute posthemorrhagic anemia; J44.0 Chronic obstructive pulmonary disease with (acute) lower respiratory infection; N17.9 Acute kidney failure, unspecified; I16.0 Hypertensive urgency; G35 Multiple sclerosis; E78.5 Hyperlipidemia, unspecified; D64.9 Anemia, unspecified; M41.9 Scoliosis, unspecified; E87.5 Hyperkalemia; G25.81 Restless legs syndrome; I25.10 Atherosclerotic heart disease of native coronary artery without angina pectoris; I27.20 Pulmonary hypertension, unspecified; Z95.2 Presence of prosthetic heart valve; Z51.5 Encounter for palliative care; Z79.899 Other long term (current) drug therapy; Z79.82 Long term (current) use of aspirin; E87.6 Hypokalemia; Z66 Do not resuscitate; H40.9 Unspecified glaucoma; K44.9 Diaphragmatic hernia without obstruction or gangrene; N18.31 Chronic kidney disease, stage 3a